=== PATIENT | male | born 1950 | race Caucasian/White ===

== ENCOUNTER → 2018-04-27 03:16 | Outpatient (CLI) | payer OTHER, SELFPAY ==
[2018-04-27 12:33] LABS: Abs Immature Grans 0.01 k/cumm (0.0-0.09); Absolute Basophil Count 0.05 k/cumm (0.0-0.2); Absolute Eosinophil Count 0.24 k/cumm (0.0-0.7); Absolute Lymphocyte Count 1.98 k/cumm (1.2-3.4); Absolute Monocyte Count 0.74 k/cumm (0.11-0.7); Absolute Neutrophil Count 5.71 k/cumm (1.2-6.7); Basophils % 0.6; Eosinophils % 2.7; HCT 42.4 % (40.0-50.0); HGB 14.1 g/dL (13.5-17.5); Immature Grans % 0.1; Lymphocytes % 22.7; Mean Corp. HGB Concentration 33.3 g/dL (32.0-36.0); Mean Corpuscular Hemoglobin 33.2 pg (27.0-33.0); Mean Corpuscular Volume 99.8 fL (80-95); Mean Platelet Volume 10.6 fL (8.0-11.0); Monocytes % 8.5; Neutrophils % 65.4; Platelet Count 303 x1000/uL (130-400); RBC 4.25 m/cumm (4.50-6.00); RBC Distribution Width 13.6 % (11.8-14.1); White Blood Cell Count 8.73 k/cumm (4.4-10.8)
== END ==
PROVIDERS: PCP Internal Medicine; Visit Provider Internal Medicine
DX: D64.9 Anemia, unspecified (principal)
CPT/HCPCS: 36415; 85025

== ENCOUNTER 2018-06-18 07:01 | Day surgery (SDC) | payer OTHER, SELFPAY ==
--- NOTE | 2018-06-18 06:16 | W.COLOREPORT ---
Colonoscopy Report Date of procedure: 06/18/18 Pre-op diagnosis general: Colon Cancer screening Post-op diagnosis procedure note: same (and Masterson-diverticulosis, external hemorrhoid) Procedure: Colonoscopy Surgeon: Sapphire Bran Anesthesia proc note operative: MAC (Audrey Mercado CRNA) Estimated blood loss (mL): 0 Pathology: none sent Complications: None Disposition: same day Indications: Mr. Albert was seen in the office for a colonoscopy. Risks, benefits and complications were reviewed and he wished to proceed. No guarantees were given or implied. Prep: Miralax/Dulcolax Procedure Start Time: 08:39 Procedure End Time: 09:10 Retraction Time: 21 minutes Findings: Masterson-diverticulosis and external hemorrhoid Procedure Description: After informed consent was obtained the patient was taken to the procedure room and placed in a left decubitous position. Monitors were applied and a time out was done. The patients name, date of , procedure, allergies to medications and metal in their body was reviewed. The patient was then sedated. Once sedated and comfortable a rectal exam was done. External exam revealed an external hemorrhoid. Internal exam revealed a normal sphincter tone and no palpable masses. The prostate was normal. The scope was then introduced and retroflexed. No internal hemorrhoids were identified. The scope was then advanced to the cecum without difficulty. The TI and appendiceal orifice were identified. The prep was adequate. The scope was then slowly retracted over 21 minutes back into the rectum. The scope was removed and the patient was woken up and taken back to Same day surgery in stable condition. The patient tolerated the procedure well and there were no immediate complications. Follow up: The patient should follow up in 10 years unless they develop changes in bowel habits or other new gastrointestinal complaints.
--- NOTE | 2018-06-18 06:19 | PDOC.DSDIS_ITS ---
Discharge Plan Disposition Patient Disposition: HOME Condition: Good Discharge Details Reason For Visit: colon cancer screening Attending Provider: Sapphire Bran Primary Care Provider: Jessie Looney Home Meds and New Rx's Prescriptions: Continue CENTRUM TABLET 1 EACH tablet 1 ea PO DAILY RF: 0 tadalafil [Cialis] 2.5 MG tablet 2.5 mg PO DAILY Qty: 30 RF: 5 zolpidem 12.5 MG tablet,ext release multiphase 12.5 mg PO HS PRNQty: 30 RF: 5 Discontinued polyethylene glycol 3350 17 gram powder in packet 255 g PO DAILY Qty: 15 RF: 0 bisacodyl [Dulcolax (bisacodyl)] 5 mg tablet,delayed release (DR/EC) 5 mg PO ONCE Qty: 4 RF: 0 Discharge Instructions Instructions: Colonoscopy (DC), Diverticulosis (DC) Additional Instructions: Findings: Diverticulosis External hemorrhoids Follow up: 10 years New Medications: none Please call if you develop: fevers >101.5 Nausea or Vomiting Abdominal pain that is not transient 1. Because there will be medication in your system for the next 24 hours, you may feel a little sleepy. Your coordination will be affected. Therefore: a. Do not drive or operate dangerous equipment for 24 hours. b. Do not drink alcohol beverages for 24 hours (not even beer). c. Plan to go home and rest for the day. 2. Generally there are no restrictions on your activity after a day or so has gone by, but you may feel a bit fatigued for a few days. 3 After you arrive home you may have a light meal and return to a normal diet as you can tolerate it without feeling sick to your stomach. 4. After surgery, you may feel pain or discomfort. This should be only transient , but if it persists please contact your doctor. 5. If there are any questions regarding the findings of your procedure, please feel free to contact your doctor. 6. If you are unable to contact your doctor with a problem, contact the hospital at [phone]. 7. Continue all your regular medications unless directed otherwise. I understand the above instructions and have no questions. Signature of Patient or Responsible Adult Escort Date/Time Name of Responsible Adult Escort Signature of Nurse Date/Time Activity:: Activity as Tolerated Diet:: High Fiber diet Discharge Orders Discharge Orders: Discharge Order (Routine); Ordered 06/18/18 Ordered By: Sapphire Bran
[2018-06-18 07:16] VITALS: BP 142/84; PULSE 68; RESP 16; TEMP 36.3; O2SAT 99
[2018-06-18] MEDS: Lactated Ringers 1,000 ML 80 ML IV (07:45)
--- NOTE | 2018-06-18 08:28 | HPE_ITS ---
Assessment and Plan (1) Encounter for colorectal cancer screening: Current visit: Yes Status: Acute P\\ Colonoscopy under sedation The Risks, benefits and complications have been reviewed. Complications include but are not limited to bleeding, pain, perforation, missed small lesion/polyp, sore throat, aspiration and adverse reaction to the medications. Questions were entertained and answered to their satisfaction and they wished to proceed. No guarantees were given or implied. Patient is here today for Colonoscopy screening pre-op. His last Colonoscopy was in 2006, which was unremarkable. He has no family history of colon cancer. He has not had any bowel habit changes. Denies hematochezia, melena, abdominal pain, unintentional weight loss. Denies constitutional symptoms. Denies chest pain, palpitations, dyspnea or dyspnea with exertion. There have been no changes in his health since he was seen in the office. Review of Systems Cardiovascular Denies chest pain, Denies rapid heart rate and Denies irregular heart rhythm Respiratory Reports system reviewed and no additional complaints, except as docu [facility] Family History Mother Neoplasm Father Essential hypertension Neoplasm Sister Cerebrovascular accident Grandfather Neoplasm Grandfather Diabetes Grandmother No problems noted. Grandmother Neoplasm Sister No problems noted. Son No problems noted. Daughter No problems noted. Medical History Erectile dysfunction (Acute) Low back pain (Acute) Sensorineural hearing loss, bilateral (Acute) Social History Smoking/Tobacco Use Status: Never Surgical History Repair of umbilical hernia (~04/2011) Vasectomy Meds Home Medications Medication Instructions Recorded Confirmed Type Centrum Tablet 1 ea PO DAILY 07/11/13 06/18/18 History tadalafil [Cialis] 2.5 mg PO DAILY #30 tab-cap 11/22/17 06/18/18 Rx zolpidem 12.5 mg PO HS PRN #30 tab-cap 04/19/18 06/18/18 History bisacodyl 5 mg tablet,delayed 5 mg PO ONCE #4 tab 05/18/18 06/18/18 Rx release polyethylene glycol 3350 17 gram 255 g PO DAILY #15 each 05/18/18 06/18/18 Rx oral powder packet Allergies Allergy/AdvReac Type Severity Reaction Status Date / Time sulfamethoxazole AdvReac Mild GI Upset Unverified 08/02/17 09:39 Exam Resp Auscultation: clear to auscultation bilaterally Cardio Rate: regular rate Rhythm: regular rhythm Results Last Vital Signs Temp 97.3 F L 06/18/18 07:16 Pulse 68 06/18/18 07:16 Resp 16 06/18/18 07:16 BP 142/84 H 06/18/18 07:16 Pulse Ox 99 06/18/18 07:16
[2018-06-18 09:53] VITALS: BP 133/84; PULSE 59; RESP 18; TEMP 36.4; O2SAT 98
== END 2018-06-18 10:08 | disposition home or self-care (01) ==
LOC: SUR 07:04
PROVIDERS: PCP Internal Medicine; Visit Provider Surgery
PROC: 0DJD8ZZ Inspection of Lower Intestinal Tract, Via Natural or Artificial Opening Endoscopic (ICD-10-PCS; CPT 45378; principal; 2018-06-18 08:15)
DX: Z12.11 Encounter for screening for malignant neoplasm of colon (principal)
CPT/HCPCS: 45378; NC

== ENCOUNTER 2018-08-13 10:18 | Outpatient (CLI) | payer OTHER, SELFPAY ==
[2018-08-13 13:35] LABS: Cholesterol 218 mg/dL (50-200); HDL Cholesterol 111 mg/dL (40-60); LDL CHOLESTEROL 86 mg/dL (<100)
[2018-08-13 13:37] LABS: Triglyceride < 25 mg/dL (30-150)
== END 2018-08-13 10:38 ==
PROVIDERS: PCP Internal Medicine; Visit Provider Internal Medicine
DX: E78.5 Hyperlipidemia, unspecified (principal)
CPT/HCPCS: 36415; 80061; 83721

== ENCOUNTER 2019-08-23 01:24 | Outpatient (CLI) | payer OTHER, SELFPAY ==
[2019-08-23 13:05] LABS: ALT 26 U/L (16-63); AST 16 U/L (15-37); Alkaline Phosphatase 57 U/L (46-116); Anion Gap 5.7 mmol/L (3-11); BUN 15 mg/dL (7-18); Bilirubin, Total 0.8 mg/dL (0.2-1.0); CO2 32.3 mmol/L (21.0-32.0); Calcium 9.4 mg/dL (8.5-10.1); Calculated LDL 104 mg/dL; Chloride 102 mmol/L (98-107); Cholesterol 215 mg/dL (<200); Glucose 102 mg/dL (74-106); HDL Cholesterol 102 mg/dL (40-60); Potassium 4.3 mmol/L (3.5-5.1); Sodium 140 mmol/L (136-145); Total Protein 7.3 g/dL (6.4-8.2); Triglyceride 48 mg/dL (<150)
[2019-08-26 10:51] LABS: PSA, Screening 1.2 ng/mL (0.0-4.5)
== END 2019-08-23 01:44 ==
PROVIDERS: PCP Internal Medicine; Visit Provider Internal Medicine
DX: Z00.00 Encounter for general adult medical examination without abnormal findings (principal); R35.1 Nocturia; Z13.220 Encounter for screening for lipoid disorders; Z12.5 Encounter for screening for malignant neoplasm of prostate
CPT/HCPCS: 36415; 80053; 80061; 84153

== ENCOUNTER 2020-08-25 02:47 | Outpatient (RCR) | payer OTHER, SELFPAY ==
--- NOTE | 2020-08-25 13:00 | HOLTER_ITS ---
APPROVED REPORT Exam Type: HOLTER MONITOR APPLICATION Reason for Test: bradycardia conduction d/o Patient Location: O Conclusion This is a 48-hour Holter monitor. Rhythm throughout was sinus. Average heart rate was 78. Minimum was 58 and maximum 121 There were rare atrial and ventricular ectopic beats No atrial fibrillation, no pauses greater than 3 seconds, no high-grade AV block No patient symptoms were reported
== END 2020-09-03 23:59 | disposition home or self-care (01) ==
LOC: RT 02:47
PROVIDERS: PCP Nurse Practitioner; Visit Provider Nurse Practitioner
DX: R00.1 Bradycardia, unspecified (principal)
CPT/HCPCS: 93225; 93226

== ENCOUNTER 2021-12-06 04:09 | Outpatient (CLI) | payer OTHER, SELFPAY ==
[2021-12-06 10:30] LABS: Source Nasal/Nares
[2021-12-06 14:44] LABS: COVID-19 PCR Negative (Negative)
== END 2021-12-06 04:10 | disposition home or self-care (01) ==
LOC: LBO 04:09
PROVIDERS: PCP Nurse Practitioner; Visit Provider Surgery
DX: Z20.822 Contact with and (suspected) exposure to COVID-19 (principal); Z01.818 Encounter for other preprocedural examination
CPT/HCPCS: 87635

== ENCOUNTER 2021-12-08 07:50 | Day surgery (SDC) | payer OTHER, SELFPAY ==
[2021-12-08] VITALS (7 sets, daily range): BP systolic 93–137; BP diastolic 55–87; PULSE 53–78; RESP 16–17; TEMP 36.4–36.6; O2SAT 95–97; BMI 27.9
--- NOTE | 2021-12-08 06:31 | W.PREOPHP ---
Assessment and Plan Assessment and plan (1) Left inguinal hernia: Status: Acute Assessment and plan: Fermin is here today with Faith regarding a left inguinal hernia.? On exam it is a small hernia that is easily reduced.? We discussed reasons to have this repaired.? If he has increase in pain, the hernia causes him not to be able to do the things he wants to do on a daily basis or if he starts to have difficulty in reducing it then we should repair it.? He needs to learn to lift using proper mechanics.? She should not be lifting heavy things by himself.? I discussed the surgery and postoperative restrictions.? I gave them a pamphlet to read regarding hernia repairs. Risks, benefits and complications were reviewed. Complications include but are not limited to bleeding, infection, recurrence, chronic pain from nerve impingement, adverse reaction to medications. Questions were entertained and answered to his satisfaction and he wished to proceed. No guarantees were given or implied. History of Present Illness Narrative: Fermin is here today because about 3 to 4 weeks ago he noticed a lump in his left inguinal area.? He was able to push it back and when he laid down.? He is here today to discuss whether or not he has to have this repaired.? He has not had any dysuria or hematuria.? He has not had any issues with bowel movements.? He has minimal discomfort.? He would rated a 1 out of 10 when he does have discomfort.? He did have an umbilical hernia repair in the past and did well with that.? He did not have any issues with the mesh. left inguinal 1 No 3-4 weeks reduced hernia denies chills, constipation, cramping, diarrhea, fever(s), nausea, vomiting or other Anesthesia: general Previous surgical intolerances: No Previous surgical complications: No Pulmonary risk factors: age > 60 Date of surgery: 12/08/21 Planned procedure: Yes Sleep apnea risks: No Can climb one flight of stairs (12-13 steps) in less than 30 seconds without stopping and without symptoms: Yes The surgery proposed for this patient is: low risk Active cardiac conditions: none Active risk factors: none ASA (acetylsalicylic acid): not used Beta blockers: not used Review of Systems All systems reviewed & are unremarkable except as noted in HPI and below PFSH All Active Problems Left inguinal hernia (Acute) Nocturia (Acute) Insomnia (Acute) Bradycardia (Acute) Sensorineural hearing loss, bilateral (Acute 01/07/16) Erectile dysfunction (Acute 07/14/14) Medical History Low back pain Seeing chiropractor with good results. Also increased exercise. Scoliosis Surgical History Repair of umbilical hernia (~04/2011) Vasectomy Family History Mother , age 71 Breast cancer Cervical cancer Father , age 85 Essential hypertension Cancer of kidney Sister , age 56 Stroke Maternal Grandfather Prostate cancer Paternal Grandfather Diabetes Maternal Grandmother No problems noted. Paternal Grandmother Cancer Sister No problems noted. Son No problems noted. Daughter No problems noted. Social History Smoking/Tobacco Use Status: Never Second Hand Exposure: Yes Smoking risk assessment performed?: Yes Alcohol Intake: current Alcohol Intake frequency: a few times a week Alcohol type: beer, wine and hard liquor Drug use: Never Substance use type: does not use Caregiver/Support person: No Household members: spouse Housing: house Communication Needs: Hard of Hearing Pets and animals: No Sexually active: Yes Do you think of yourself as: straight/heterosexual Current gender identity: male What is your relationship status?: How often do you talk on the phone with friends or family?: three or more times per week How often do you get together with friends or relatives?: once per week How often do you attend orthodox or bahai services?: 1-3 times per year Do you belong to any clubs or organized social groups?: yes Panel score (0-1 are the most socially isolated patients): 3 What type of physical activity do you participate in: walking and weight lifting Duration: 30-45 minutes/day Frequency: 3-4 times per week Nicole/Jewish: Denominational Special nicole needs: No Seatbelt use: always Drive intox or ride w/intox wrecking car driver: No Do you feel safe at home: Yes Do you feel safe in your relationship?: Yes Victim of physical abuse: No Victim of emotional abuse: No Victim of sexual abuse: No Would you like helpful sources: No Meds Allergies and Home Medications Allergies Allergy/AdvReac Type Severity Reaction Status Date / Time sulfamethoxazole AdvReac Mild GI Upset Verified 12/08/21 07:58 Home Medications Medication Instructions Recorded Confirmed Type Centrum Tablet 1 ea PO DAILY 07/11/13 12/08/21 History tadalafil 5 mg tablet 5 mg PO DAILY #90 tab 11/15/21 12/08/21 Rx zolpidem 12.5 mg tablet,extended 12.5 mg PO HS PRN #60 tab-cap 11/16/21 12/08/21 Rx release,multiphase Exam Const General: cooperative, comfortable and no acute distress [facility] Head: normocephalic and atraumatic Resp Effort & Inspection: normal respiratory effort Auscultation: clear to auscultation bilaterally Cardio Rate: regular rate Rhythm: regular rhythm GI Inspection: normal to inspection Palpation: soft, no hepatosplenomegaly, hernia (left inguinal hernia) and nontender
--- NOTE | 2021-12-08 06:36 | W.PM.OP ---
Date of service: 12/08/21 Time of Service: 10:11 Operative Note Operative Note DATE OF PROCEDURE: 12/08/21 PRE-OP DIAGNOSIS: left inguinal hernia POST-OP DIAGNOSIS: other (left direct and indirect inguinal hernia) PROCEDURE: Left inguinal hernia repair with mesh SURGEON: Sapphire Bran DISPENSING OPERATOR: Yoselyn Contreras Refer to Anesthesia Record ESTIMATED BLOOD LOSS: 15 PATHOLOGY: none sent COMPLICATIONS: None Patient was transported to: PACU Patient's condition: stable Implants: PerFix Light Plug: REF- [id number] LOT- [id number] 2025-10-01 Indications: Fermin is here today with Faith regarding a left inguinal hernia.? On exam it is a small hernia that is easily reduced.? We discussed reasons to have this repaired.? If he has increase in pain, the hernia causes him not to be able to do the things he wants to do on a daily basis or if he starts to have difficulty in reducing it then we should repair it.? He needs to learn to lift using proper mechanics.? She should not be lifting heavy things by himself.? I discussed the surgery and postoperative restrictions.? I gave them a pamphlet to read regarding hernia repairs. Risks, benefits and complications were reviewed. Complications include but are not limited to bleeding, infection, recurrence, chronic pain from nerve impingement, adverse reaction to medications. Questions were entertained and answered to his satisfaction and he wished to proceed. No guarantees were given or implied. Findings: Large direct hernia and indirect hernia Cord lipoma Procedure Description: After informed concent was obtained the patient was taken to the operating room and placed in a supine position. Monitors and SCDs were applied and a timeout was done. The patient's name, date of , procedure type, procedure site, allergies to medications, preoperative antibiotic, and DVT prophylaxis were all reviewed. Fire risk was assessed. Next anesthesia did a tap block on the left side under ultrasound guidance. Please see their separate dictation. Once anesthesia was done the abdomen was prepped and draped in a sterile surgical fashion. 0.25% Bupivocaine was injected into the dermis in the left lower quadrant. An incision was made with a 10 blade in the left lower quadrant. Dissection was done with cautery through the subcutaneous tissues and Sandi's fascia down to the external oblique fascia. The external ring was identified and the external oblique fascia was opened sharply through the external ring. The cut fascia was grasped with hemostats the cord structures were identified and a Ramesh drain was placed around them. The ilioinguinal nerve was identified and cut. The cremasteric muscle was dissected away from the cord structures using both cautery and blunt dissection. A hernia sac was identified and removed from the cord structures using blunt dissection. The hernia sac was suture ligated and amputated. The remnant was pushed back into the peritoneum. An XL plug was placed into the indirect defect and secured with 2-0 proline. A flat piece of mesh was then attached to the lacunar ligament using a 2-0 Prolene double armed suture. The mesh was secured laterally and medially with a 2-0 Prolene, with a running suture. The tails of the mesh were wrapped around the cord structures effectively cinching down the internal ring. Once the mesh was secured the tissues were irrigated with some normal saline. No bleeding was identified. The external oblique fascia was reapproximated using 2-0 Vicryl running suture. The Sandi's fascia was reapproximated using interrupted 3-0 Vicryl. The dermis was reapproximated with a running 4-0 Vicryl. The skin was cleaned and dried and skin affix was applied. The patient was woken up and taken back to recovery in stable condition. There were no immediate complications. Sponge, instrument and needle counts were correct at the end of the case x2.
--- NOTE | 2021-12-08 06:37 | W.PM.DSUDISC ---
Discharge Plan Disposition Patient Disposition: HOME Condition: Stable Discharge Details Reason For Visit: left inguinal hernia repair Attending Provider: Sapphire Bran Primary Care Provider: Yanique Duque Home Meds and New Rx's Prescriptions: Continued CENTRUM TABLET 1 EACH tablet 1 ea PO DAILY 0RF tadalafil 5 mg tablet 5 mg PO DAILY Qty: 90 4RF zolpidem 12.5 mg tablet,ext release multiphase 12.5 mg PO HS PRN (Reason: insomnia) Qty: 60 0RF Discharge Instructions Additional Instructions: Activity at Home after surgery: 1. Make sure you walk outside at least 4 times per day 2. You should be able to climb a flight of stairs 3. No driving while in pain or taking pain medications 4. No strenuous activity or heavy lifting for 4 weeks (open surgery) Diet, Nutrition, & wound healin. Avoid alcohol until after you are recovered from your surgery 2. Make sure to eat plenty of lean protein (meat, fish, eggs, cottage cheese, beans) 3. Eat a variety of fruits and vegetables. Eat plenty of high fiber foods to avoid constipation. 4. Drink plenty of liquids to stay hydrated and avoid constipation Pain Medications: 1. Tylenol 650mg every 6 hours as needed and Ibuprofen 600 mg every 6 hours as needed. You may alternate between the 2 medications every 3 hours 2. If a narcotic has been prescribed take as directed only for breakthrough pain For Constipation: 1. Take Milk of Magnesia or MiraLax as needed for constipation Other: 1. You may shower daily. Do not scrub the incisions 2. Do not soak the incisions for 1 week 3. You may alternate ice and heat as needed for pain and swelling Wound Care: 1. Keep the incisions clean and dry Other Services that may have been ordered: 0 Home Health- to help with dressing changes 0 Outpatient physical therapy Please call our office if you develop: 1. Fevers >101.5 2. Nausea or Vomiting 3. Worsening pain 4. Redness and thick discharge from the wounds If after hours please call the Hospital at and ask to speak to the on-call surgeon Referrals: Sapphire Bran MD [ [facility] STAFF PHYSICIAN] - 12/28/21 10:00 am Activity:: as above Remove Dressings/Wound Care:: Do Not Remove Shower/Bathe:: 24 hours Diet:: As Tolerated Discharge Orders Discharge Orders: Discharge Order (Routine); Ordered 12/08/21 Ordered By: Sapphire Bran DS: Diagnosis Discharge Diagnosis (1) Left inguinal hernia: Status: Acute
--- NOTE | 2021-12-08 07:09 | ANES.PREOP_ITS ---
General Info Date of Service Date Performed: 12/08/21 Height: 5 ft 8 in Weight: 83.461 kg Body Mass Index (BMI): 27.9 Surgical Procedure: Operation Date: 12/08/21 09:10 Proposed Procedure Side Surgeon p Herniorrhaphy Inguinal Left Sapphire Bran MD Meds Allergies and Home Medications Allergies Allergy/AdvReac Type Severity Reaction Status Date / Time sulfamethoxazole AdvReac Mild GI Upset Verified 12/08/21 07:58 Home Medication Medication Instructions Recorded Centrum Tablet 1 ea PO DAILY 07/11/13 tadalafil 5 mg tablet 5 mg PO DAILY #90 tab 11/15/21 zolpidem 12.5 mg tablet,extended 12.5 mg PO HS PRN #60 tab-cap 11/16/21 release,multiphase Current Visit Medications: Current Medications Generic Name Dose Route Start Last Admin Trade Name Freq PRN Reason Stop Dose Admin Acetaminophen 1,000 mg 12/08/21 06:00 Acetaminophen 500 Mg Tab PO 01/06/22 23:59 PREOP NATE Celecoxib 200 mg 12/08/21 06:00 Celecoxib 200 Mg Cap PO 01/06/22 23:59 PREOP PENDING SALE TO [facility] Gabapentin 600 mg 12/08/21 06:00 Gabapentin 300 Mg Cap PO 01/06/22 23:59 PREOP PENDING SALE TO [facility] Ringer's Solution 1,000 mls @ 80 mls/hr 12/08/21 06:00 IV 01/06/22 23:59 INFUSION NATE Cefazolin Sodium/Dextrose 2 gm in 50 mls @ 100 mls/hr 12/08/21 06:00 Ancef Duplex IVPB 01/06/22 23:59 PREOP PENDING SALE TO [facility] Ondansetron HCl 4 mg/ Sodium 52 mls @ 200 mls/hr 12/08/21 06:38 Chloride IVPB Q6H PRN PRN IV Miscellaneous Supplies 1 each 12/08/21 06:00 Iv Access IV 01/06/22 23:59 DIRECTED NATE Ibuprofen 600 mg 12/08/21 06:38 Ibuprofen 600 Mg Tab PO Q6H PRN PRN Pain Oxycodone HCl 5 mg 12/08/21 06:38 Oxycodone 5 Mg Tab PO Q3H PRN PRN Pain Sodium Chloride 0 ml 12/08/21 06:00 Normal Saline Flush 10 Ml Syr IV 05/05/22 23:59 PRN PRN Sodium Chloride 0 ml 12/08/21 06:00 Normal Saline 10 Ml Vial IJ 01/06/22 23:59 DIRECTED PRN Sterile Water 0 ml 12/08/21 06:00 Water,Injection,Sterile 10 Ml Vial IJ 01/06/22 23:59 DIRECTED PRN PFSH Active Problems Active Problems: Problem Status Onset Code Left inguinal hernia K40.90 Nocturia R35.1 Insomnia G47.00 Bradycardia R00.1 Sensorineural hearing loss, bilateral 01/07/16 H90.3 Erectile dysfunction 07/14/14 N52.9 Medical History Medical History Low back pain Seeing chiropractor with good results. Also increased exercise. Scoliosis Surgical History Surgical History Repair of umbilical hernia (~04/2011) Vasectomy Tobacco Smoking/Tobacco Use Status: Never Passive smoking exposure: Yes Second hand exposure: Yes Alcohol Alcohol Intake: current Alcohol intake frequency: a few times a week Alcohol type: beer, wine and hard liquor Substance Use Substance use: Never Substance use type: does not use Vital Signs and Lab Results Lab Results Blood Type / Crossmatch: No Data to Display Complete Blood Count: No Data to Display Complete Metabolic Panel: No Data to Display Liver Function Panel: No Data to Display Coagulation Panel: No Data to Display Cardiac Panel: No Data to Display Arterial Blood Gas: No Data to Display Venous Blood Gas: No Data to Display Pancreas Panel: No Data to Display Thyroid Panel: No Data to Display Infectious Disease: Coronavirus (COVID-19)(PCR) Negative (Negative) 12/06/21 08:45 12/06/21 Coronavirus 2019 Source Nasal/Nares 12/06/21 08:45 12/06/21 Blood Cultures: No Data to Display Toxicology Panel: No Data to Display Imaging and Studies Imaging and Studies Study information below may be from another EMR and interpreted by another provider. Please see original notes in EMR for more complete details. EKG Summary: Conclusion Sinus rhythm...normal P axis, V-rate 60- 99 Nonspecific intraventricular conduction delay...QRSd >115mS, not LBBB/RBBB Anesthesia Assessment and Plan Anesthesia History Personal History: No History of Anesthesia Complications Family History: No Family History of Anesthesia Complications Exercise Tolerance Exercise Tolerance: Metabolic Equivalents>4 Pertinent Negatives Pertinent Negatives: No Symptoms of GERD, No Major Cardiovascular Symptoms or Complaints, No Major Pulmonary Symptoms or Complaints and No History of CVA/TIA Cardiac & Pulmonary Exam Cardiac Exam: Normal S1/S2 Heart Sounds Pulmonary Exam: Clear Bilateral Breath Sounds Implantable Cardiac Device Does patient have a Pacemaker or an ICD?: No Airway Exam Known Difficult Airway: No Mallampati Class: 2 Mouth Opening: Normal (> 3cm) Thyromental Distance: Greater than 3 cm Neck Range of Motion: Full ROM Neck Circumference: Normal Teeth Condition: Normal Dentition ASA Classification ASA Score: ASA 2 Emergency Case?: No NPO Status NPO Status: NPO Clears >2 hours, Solids >8 hours Anesthesia Plan Resuscitation Status: Full Code Anesthesia Technique: General Anesthesia Airway Planned: LMA Pain Management: Surgeon and patient request nerve block Monitors Used: Standard Monitors
[2021-12-08] MEDS: Celecoxib 200 MG CAP PO (08:35)
[2021-12-08] MEDS: Acetaminophen 500 MG TAB 1000 MG PO (08:35)
[2021-12-08] MEDS: Gabapentin 300 MG CAP 600 MG PO (08:35)
[2021-12-08] MEDS: Lactated Ringers 1,000 ML 80 ML IV (08:36)
[2021-12-08] MEDS: ceFAZolin 2 GM/50 ML BAG IVPB (09:11)
--- NOTE | 2021-12-08 09:26 | W.ANESNERVE ---
Nerve Block Single Injection Procedure Date and Time Date Performed: 12/08/21 Procedure Start: 08:09 Location Where Procedure Performed Procedure Location: Operating Room Procedure Stop: 08:19 Reason Performed: Postoperative Analgesia Requesting Provider: Sapphire Bran Timeout Performed Timeout Performed: Yes Monitoring Used ECG, Blood Pressure, SpO2 and ETCO2 Sterility Sterility: Hand Hygiene, Surgical Cap, Surgical Mask, Sterile Gloves, Eye Protection and Chlorhexidine Sedation Given During Procedure Sedation Given (Indicate Dose Given): No Sedation given Patient Mental Status Patient Mental Status: Sedated or Ventilated without meaningful communication Nerve Block 1st Nerve Block: Laterality: Left Block Type: TAP Unilateral Needle / Catheter Used: 100mm SonoPlex II Local Anesthetic Bolus (Indicate Dose Given): Injected in 3-5ml increments after negative blood aspiration and Bupivacaine 0.25% Dose:: 20 ml Additives (Indicate Dose Given): Precedex Dose:: 80 mcg Ultrasound: Sterile probe cover and gel used Ultrasound Image Saved?: Yes Nerve Stimulator: Not Used Paresthesia: None Procedure Tolerated: No Complications and Patient tolerated well Procedure Outcome: Successful Performed By: Jessica Payne Supervised By: Guillermo Hernandez
[2021-12-08] MEDS: Bupivacaine 0.25% Pres-Free 30 ML VIAL (10:03)
--- NOTE | 2021-12-08 11:32 | W.ANESPOSTOP ---
Postoperative Evaluation Date, Time and Location Date Performed: 12/08/21 Time Performed: 11:32 Patient Location: Day Surgery Unit Vital Signs Most Recent Imported Vital Signs: Most Recent Vital Signs Temp Pulse Resp BP Pulse Ox 36.4 C L 57 L 16 100/73 96 12/08/21 11:21 12/08/21 11:21 12/08/21 11:21 12/08/21 11:21 12/08/21 11:21 Pain Score Most Recent Pain Score: Most Recent Pain Score Pain Level 2 12/08/21 11:21 Assessment Mental Status: Awake (Alert & Oriented to Patient Baseline) Airway and Respiratory Function: Patent airway with normal (patient baseline) respiratory exam Cardiovascular Function: Hemodynamically Stable Hydration Status: Adequately Hydrated Nausea & Vomiting: No Nausea or Vomiting Pain: Pt. Denies Any Pain Peripheral Nerve Block: Regional nerve block not resolved at time of post operative discharge
== END 2021-12-08 11:53 | disposition home or self-care (01) ==
LOC: SUR 07:51
PROVIDERS: PCP Nurse Practitioner; Visit Provider Surgery
PROC: (CPT 49505; principal; 2021-12-08 09:00)
DX: K40.90 Unilateral inguinal hernia, without obstruction or gangrene, not specified as recurrent (principal); R00.1 Bradycardia, unspecified; G47.00 Insomnia, unspecified
CPT/HCPCS: 49505; 76942; C1781; J0690; J1100; J1885; J2405; J2704

== ENCOUNTER → 2023-05-26 14:16 | Outpatient (CLI) | payer OTHER, SELFPAY ==
--- NOTE | 2023-05-26 12:30 | DI.RAD_ITS ---
Exam(s) XR CHEST 2V PA LATERAL EXAM: XR CHEST 2V PA LATERAL CLINICAL HISTORY: worsening cough R05.9 TECHNIQUE: 2D digital imaging was performed. COMPARISON: No exams were available for comparison FINDINGS: HEART: Normal size. Aorta: Not dilated. PULMONARY VASCULATURE: Normal. LUNGS: Clear. PLEURAL SPACE: No pleural effusion or pneumothorax. BONE:Unremarkable for age. IMPRESSION: No acute abnormality. DATA REPOSITORY: RADIATION DOSE DELIVERED:
== END ==
PROVIDERS: PCP Nurse Practitioner Family; Visit Provider Nurse Practitioner Family
DX: R05.9 Cough, unspecified (principal)
CPT/HCPCS: 71046

== ENCOUNTER 2023-06-19 04:54 | Outpatient (CLI) | payer OTHER, SELFPAY ==
[2023-06-19] MEDS: Levalbuterol HFA 15 GM INH 4 PUFF IH (11:03)
[2023-06-19] MEDS: Inhaler, Assist Device 1 EACH MC (11:03)
--- NOTE | 2023-06-19 15:59 | W.PFT ---
Date of service: 06/19/23 Time of Service: 09:57 Pulmonary Function Test Result Indications: Asthma Interpretation Spirometry: There is no airflow limitation. There is no significant bronchodilator response. Impression Normal spirometry Clinical Correlation therefore is recommended.
== END 2023-06-19 04:55 | disposition home or self-care (01) ==
LOC: RT 04:54
PROVIDERS: PCP Nurse Practitioner Family; Visit Provider Family Medicine
DX: J45.40 Moderate persistent asthma, uncomplicated (principal)
CPT/HCPCS: 94060

== ENCOUNTER 2023-06-21 08:24 | Outpatient (CLI) | payer OTHER, SELFPAY ==
[2023-06-23 18:19] LABS: Elm IgE <0.10 kU/L (<0.70); June Grass IgE 0.49 kU/L (<0.70); Lamb's Quarter IgE <0.10 kU/L (<0.70); Oak IgE <0.10 kU/L (<0.70); Short Ragweed IgE 0.19 kU/L (<0.70); Silver Birch IgE <0.10 kU/L (<0.70); Timothy Grass IgE 0.45 kU/L (<0.70)
== END 2023-06-21 08:25 | disposition home or self-care (01) ==
PROVIDERS: PCP Nurse Practitioner Family; Referring Provider Family Medicine; Visit Provider Family Medicine
DX: J45.40 Moderate persistent asthma, uncomplicated (principal); R06.2 Wheezing
CPT/HCPCS: 36415; 86003

== ENCOUNTER 2023-08-14 05:31 | Outpatient (CLI) | payer OTHER, SELFPAY ==
[2023-08-14] MEDS: Methacholine 100 MG VIAL IH (14:25)
[2023-08-14] MEDS: Inhaler, Assist Device 1 EACH MC (14:26)
[2023-08-14] MEDS: Albuterol HFA 18 GM 200 PUFF INH IH (14:26)
--- NOTE | 2023-08-14 14:50 | W.PFT ---
Date of service: 08/14/23 Time of Service: 12:53 Pulmonary Function Test Result Indications: Asthma Interpretation Spirometry: There is no airflow limitation. There is a 23% decrease in FEV1 with administration of 2.0 mg/mL methacholine. Lung Volumes: Normal lung volumes Diffusion Capacity: Normal diffusion Airway Pressure: Normal airways resistance Impression Normal pulmonary function with a positive methacholine challenge test. Clinical Correlation therefore is recommended.
== END 2023-08-14 05:32 | disposition home or self-care (01) ==
LOC: RT 05:31
PROVIDERS: PCP Nurse Practitioner Family; Visit Provider Physician Assistant Surgical
DX: J45.40 Moderate persistent asthma, uncomplicated (principal)
CPT/HCPCS: 94060; 94070; 94726; 94729; 94010; J7674

== ENCOUNTER 2023-09-15 11:25 | Day surgery (SDC) | payer OTHER, SELFPAY ==
--- NOTE | 2023-09-14 18:45 | PDOC.DSDIS_ITS ---
Date of service: 09/15/23 Time of Service: 14:40 Discharge Plan Disposition Patient Disposition: Home Condition: Good Discharge Details Reason For Visit: Right inguinal hernia repair Attending Provider: Cameron Pearson Primary Care Provider: Judy Stevens Home Meds and New Rx's Prescriptions: New tramadol 50 mg tablet 50 mg PO Q8H PRNQty: 12 0RF Rx Instructions: Take 1 tablet by mouth up to every 8 hours if needed for severe pain. Continued (DME) BreatheRite MDI Spacer Spacer See Rx Instructions .ROUTE .MEDSUPPLY Qty: 1 0RF Rx Instructions: As directed (DME) peak flow meter Device See Rx Instructions .Route Qty: 1 0RF Rx Instructions: As directed CENTRUM TABLET 1 EACH tablet 1 ea PO DAILY tadalafil 5 mg tablet 5 mg PO DAILY Qty: 90 4RF zolpidem 12.5 mg tablet,ext release multiphase 12.5 mg PO HS PRN (Reason: insomnia) Qty: 60 0RF budesonide-formoterol [Symbicort] 160-4.5 mcg/actuation HFA aerosol inhaler 2 inh INHALATION BID Discharge Instructions Instructions: Inguinal Hernia Repair (GEN) Additional Instructions: Fermin, we were able to repair your hernia today without much difficulty. Everything went according to plan, just as we talked about beforehand. Expect to have a little more pain in the days to follow, and perhaps some bruising over the incision. The bruising can even extend down into the scrotum, so please do not be alarmed if that happens. But do let me know if you notice any significant changes in the skin around the incision, particularly if it starts turning bright red or has any drainage from the incision site. You should be up and moving around a little bit each day just being a little careful with your lifting. Try to keep it less than 10 pounds. I provided a prescription for a medication called tramadol if Tylenol and ibuprofen are not enough to help with the pain. I suspect he will do just fine. if you have any questions at all, please do not hesitate to call, otherwise I will see you in the office for rout ine follow-up. 1. Resume all of your medications. 2. Use heating pads and Ice packs as needed for pain. 3. Okay to use tylenol and ibuprofen over the counter as needed. Use tramadol as needed for more severe pain. 4. Leave bandage in place for 24 hours, then remove. 5. Shower with warm soapy water. Pat dry. Use a bandaid if needed to protect your clothing. 6. No soaking or tub baths until I see you in the office. 7. No heavy lifting until I see you in the office. 8. Call the office (or go directly to the emergency room after hours) if you notice any of the following: Develop chills (warm to touch), or if you have a thermometer and your temperature is above 101 Difficulty breathing or difficultly swallowing Persistent vomiting Any bleeding ? exceeding one tablespoon 9. Call your physician if the site where your intravenous was started becomes red, swollen, painful, and warm to touch. Activity:: No heavy lifting Remove Dressings/Wound Care:: 24 hours Shower/Bathe:: 24 hours Diet:: As Tolerated Discharge Orders Discharge Orders: Discharge Order (Routine); Ordered 09/14/23 Ordered By: Cameron Pearson DS: Diagnosis Discharge Diagnosis (1) Right inguinal hernia: Status: Acute Asessment and Plan: Status post open right inguinal herniorrhaphy with mesh; outpatient postop follow-up
--- NOTE | 2023-09-14 18:47 | W.PM.OP ---
Date of service: 09/15/23 Time of Service: 14:43 Operative Note Operative Note DATE OF PROCEDURE: 09/15/23 PRE-OP DIAGNOSIS: Right inguinal hernia POST-OP DIAGNOSIS: same Direct and indirect components PROCEDURE: Open right inguinal hernia repair with mesh SURGEON: Cameron Pearson MARKETING CAMPAIGN ANALYST: Yoselyn Contreras ANESTHESIA TYPE: Local By Surgeon and General LMA/ETT Refer to Anesthesia Record ESTIMATED BLOOD LOSS: 25 PATHOLOGY: none sent COMPLICATIONS: None Patient was transported to: PACU Patient's condition: stable Implants: Bard PerFix light patch and plug Indications: Fermin is a 73 year old man with an enlarging and occasional painful right inguinal hernia. Findings: Right-sided direct and indirect inguinal hernias Procedure Description: I began by confirming the correct site with the patient. Next, after induction of general anesthesia, the right inguinal region was blocked using real-time ultrasound guidance by the anesthesia team.. Surgical site was then prepped and draped in the usual fashion. I began by making an oblique incision over the right inguinal region. I dissected down through the skin to the deep fascia. Next, I incised the fascia along the length of the inguinal canal to the external ring. The external oblique fascia was quite attenuated. I then carefully identified the ilioinguinal nerve and sharply divided. Once this was complete, I bluntly dissected the shelving edge of the inguinal ligament down towards the pubic tubercle. Here, I encircled all cord structures with a Ramesh drain. Next, I began dissecting the specific cord structures. Great care was taken to spare the vas deferens and the blood supply to the testicle. Next, I isolated the hernia sac from the other inguinal structures. I reduced it back to its normal anatomic position. During this dissection, it also became quite clear that the floor of the inguinal canal was incompetent. In addition to the indirect inguinal hernia, there was also a direct component. I used a Bard PerFix light mesh plug to obliterate the defect at the internal ring. I fixed in place with interrupted Prolene stitches. Next, I buttressed the posterior floor of the inguinal canal with a large mesh patch. I started by fixing it to the pubic tubercle. Next, I used Prolene sutures to affix it to the shelving edge of the inguinal ligament and the conjoined tendon. Laterally I tacked it to the internal oblique fascia and reconstructed an internal ring without any strain on the cord structures. Once this was complete, I irrigated the surgical field. It appeared hemostatic. I then closed the anterior portion of the fascia to reconstruct the front wall of the inguinal canal. I did this with interrupted Vicryl stitches. Once again, I irrigated the surgical field and inspected for hemostasis. Finally, I approximated the superficial fascia and the deep layers of the skin with absorbable suture. Skin was closed with running subcuticular stitches. Bandages were applied, the patient was awakened and transferred to the recovery unit.
[2023-09-15] VITALS (9 sets, daily range): BP systolic 102–145; BP diastolic 57–91; PULSE 62–72; RESP 12–22; TEMP 36.7–37.1; O2SAT 94–98; BMI 26.6
[2023-09-15] MEDS: Gabapentin 300 MG CAP 600 MG PO (12:07)
[2023-09-15] MEDS: Celecoxib 200 MG CAP PO (12:08)
[2023-09-15] MEDS: Acetaminophen 500 MG TAB 1000 MG PO (12:08)
[2023-09-15] MEDS: Lactated Ringers 1,000 ML 80 ML IV (12:10)
--- NOTE | 2023-09-15 12:22 | W.ANESPRE ---
General Info Date of Service Date Performed: 09/15/23 Height: 5 ft 8 in Weight: 79.5 kg Body Mass Index (BMI): 26.6 Surgical Procedure: Operation Date: 09/15/23 13:40 Proposed Procedure Side Surgeon p Herniorrhaphy Inguinal w/Mesh Right Cameron Pearson MD Meds Allergies and Home Medications Allergies Allergy/AdvReac Type Severity Reaction Status Date / Time sulfamethoxazole AdvReac Mild GI Upset Verified 09/15/23 11:39 Home Medication Medication Instructions Recorded Centrum Tablet 1 ea PO DAILY 07/11/13 tadalafil 5 mg tablet 5 mg PO DAILY #90 tabs 04/04/23 inhalational spacing device #1 ea 05/01/23 (BreatheRite MDI Spacer) peak flow meter #1 ea 05/31/23 zolpidem 12.5 mg tablet,extended 12.5 mg PO HS PRN insomnia #60 07/03/23 release,multiphase tab-caps budesonide-formoterol HFA 160 2 inh inhalation BID 08/01/23 mcg-4.5 mcg/actuation aerosol inhaler (Symbicort) Current Visit Medications: Current Medications Generic Name Dose Route Start Last Admin Trade Name Freq PRN Reason Stop Dose Admin Acetaminophen 1,000 mg 09/15/23 06:00 09/15/23 12:08 Acetaminophen 500 Mg Tab PO 09/15/23 23:59 1,000 mg PREOP NATE Administration Celecoxib 200 mg 09/15/23 06:00 09/15/23 12:08 Celecoxib 200 Mg Cap PO 09/15/23 23:59 200 mg PREOP NATE Administration Gabapentin 600 mg 09/15/23 06:00 09/15/23 12:07 Gabapentin 300 Mg Cap PO 09/15/23 23:59 600 mg PREOP NATE Administration Ringer's Solution 1,000 mls @ 80 mls/hr 09/15/23 06:00 09/15/23 12:10 IV 09/15/23 23:59 80 mls/hr INFUSION NATE Administration Cefazolin Sodium/Dextrose 2 gm in 50 mls @ 100 mls/hr 09/15/23 06:00 Ancef Duplex IVPB 09/15/23 23:59 PREOP NATE IV Miscellaneous Supplies 1 each 09/15/23 06:00 Iv Access IV 09/15/23 23:59 DIRECTED NATE Morphine Sulfate 2 mg 09/14/23 18:49 Morphine 4 Mg/Ml Syr IVP 10/14/23 18:48 Q1H PRN PRN Sodium Chloride 0 ml 09/15/23 06:00 Normal Saline Flush 10 Ml Syr IV 09/15/23 23:59 PRN PRN Sodium Chloride 0 ml 09/15/23 06:00 Normal Saline 10 Ml Vial IJ 09/15/23 23:59 DIRECTED PRN Sterile Water 0 ml 09/15/23 06:00 Water,Injection,Sterile 10 Ml Vial IJ 09/15/23 23:59 DIRECTED PRN Tramadol HCl 100 mg 09/14/23 18:49 Tramadol 50 Mg Tab PO 10/14/23 18:48 Q6H PRN PRN Pain PFSH Active Problems Active Problems: Problem Status Onset Code Right inguinal hernia K40.90 Lung nodules R91.8 Asthma, moderate persistent J45.40 Insomnia G47.00 Nocturia R35.1 Sensorineural hearing loss, bilateral 01/07/16 H90.3 Erectile dysfunction 07/14/14 N52.9 Medical History Medical History Left inguinal hernia Repaired Bradycardia Scoliosis Low back pain Seeing chiropractor with good results. Also increased exercise. Surgical History Surgical History S/P inguinal hernia repair using synthetic patch (~12/08/21) Vasectomy Repair of umbilical hernia (~04/2011) Tobacco Smoking/Tobacco Use Status: Never Passive smoking exposure: Yes Second hand exposure: Yes Alcohol Alcohol Intake: current Alcohol intake frequency: a few times a week Alcohol type: beer, wine and hard liquor Substance Use Substance use: Never Substance use type: does not use Vital Signs and Lab Results Vital Signs Most Recent Vital Signs in EMR: Most Recent Vital Signs Temp Pulse Resp BP Pulse Ox 36.9 C 67 16 145/83 H 98 09/15/23 11:44 09/15/23 11:44 09/15/23 11:44 09/15/23 11:44 09/15/23 11:44 Lab Results Blood Type / Crossmatch: No Data to Display Complete Blood Count: No Data to Display Complete Metabolic Panel: No Data to Display Liver Function Panel: No Data to Display Coagulation Panel: No Data to Display Cardiac Panel: No Data to Display Arterial Blood Gas: No Data to Display Venous Blood Gas: No Data to Display Pancreas Panel: No Data to Display Thyroid Panel: No Data to Display Infectious Disease: No Data to Display Blood Cultures: No Data to Display Toxicology Panel: No Data to Display Imaging and Studies Imaging and Studies Study information below may be from another EMR and interpreted by another provider. Please see original notes in EMR for more complete details. EKG Summary: 08/23 Sinus rhythm...normal P axis, V-rate 60- 99 Nonspecific intraventricular conduction delay...QRSd >115mS, not LBBB/RBBB Pulmonary Function Summary: 08/26: normal PFTs, positive methacholine challenge. Anesthesia Assessment and Plan Anesthesia History Personal History: No History of Anesthesia Complications Family History: No Family History of Anesthesia Complications Exercise Tolerance Exercise Tolerance: Metabolic Equivalents>4 Cardiac & Pulmonary Exam Cardiac Exam: Normal S1/S2 Heart Sounds Pulmonary Exam: Clear Bilateral Breath Sounds Implantable Cardiac Device Does patient have a Pacemaker or an ICD?: No Airway Exam Known Difficult Airway: No Mallampati Class: 2 Mouth Opening: Normal (> 3cm) Thyromental Distance: Greater than 3 cm Neck Range of Motion: Full ROM Neck Circumference: Normal Teeth Condition: Normal Dentition ASA Classification ASA Score: ASA 2 Emergency Case?: No NPO Status NPO Status: NPO Clears >2 hours, Solids >8 hours Anesthesia Plan Resuscitation Status: Full Code Anesthesia Technique: General Anesthesia Airway Planned: LMA Pain Management: Surgeon and patient request nerve block Monitors Used: Standard Monitors Preoperative Comments:: 73 yo male for hernia repair. Sig PMHx: lung nodule, asthma (normal PFTS), LBP, never smoker, occ EtOH. Previous Anes: - hernia, prop, LMA 5, block, no issues. - colo, prop, natural airway, no issues.
[2023-09-15] MEDS: ceFAZolin 2 GM/50 ML BAG IVPB (13:33)
--- NOTE | 2023-09-15 14:07 | W.ANESNERVE ---
Nerve Block Single Injection Procedure Date and Time Date Performed: 09/15/23 Procedure Start: 03:48 Location Where Procedure Performed Procedure Location: Operating Room Procedure Stop: 13:55 Reason Performed: Postoperative Analgesia Requesting Provider: Cameron Pearson Timeout Performed Timeout Performed: Yes Monitoring Used ECG, Blood Pressure, SpO2 and ETCO2 Sterility Sterility: Hand Hygiene, Surgical Cap, Surgical Mask, Sterile Gloves and Chlorhexidine Sedation Given During Procedure Sedation Given (Indicate Dose Given): No Sedation given Patient Mental Status Patient Mental Status: Performed under general anesthesia Nerve Block 1st Nerve Block: Laterality: Right Block Type: TAP Unilateral Ultrasound Image Saved?: Yes Needle / Catheter Used: 100mm SonoPlex II Local Anesthetic Bolus (Indicate Dose Given): Bupivacaine 0.375% Dose:: 7 mL Additives (Indicate Dose Given): None Ultrasound: Sterile probe cover and gel used Nerve Stimulator: Not Used Paresthesia: None Procedure Tolerated: No Complications Procedure Outcome: Successful Performed By: Dwayne Hughes
[2023-09-15] MEDS: Bupivacaine 0.25% Pres-Free 30 ML VIAL (14:32)
--- NOTE | 2023-09-15 15:29 | W.ANESPOSTOP ---
Postoperative Evaluation Date, Time and Location Date Performed: 09/15/23 Time Performed: 15:29 Patient Location: PACU Vital Signs Most Recent Imported Vital Signs: Most Recent Vital Signs Temp Pulse Resp BP Pulse Ox 36.7 C 72 16 113/85 94 09/15/23 15:16 09/15/23 15:16 09/15/23 15:16 09/15/23 15:16 09/15/23 15:16 Pain Score Most Recent Pain Score: Most Recent Pain Score Pain Level 1 09/15/23 15:16 Assessment Mental Status: Awake (Alert & Oriented to Patient Baseline) Airway and Respiratory Function: Patent airway with normal (patient baseline) respiratory exam Cardiovascular Function: Hemodynamically Stable Hydration Status: Adequately Hydrated Nausea & Vomiting: No Nausea or Vomiting Pain: Pt. Denies Any Pain Peripheral Nerve Block: Regional nerve block not resolved at time of post operative discharge
[2023-09-15] MEDS: Normal Saline 10 ML VIAL IJ (15:34)
[2023-09-15] MEDS: HYDROmorphone 2 MG/ML SYR IVP (15:34)
== END 2023-09-15 16:45 | disposition home or self-care (01) ==
LOC: SUR 11:25
PROVIDERS: PCP Nurse Practitioner Family; Visit Provider Surgery
PROC: (CPT 49505; principal; 2023-09-15 13:30)
DX: K40.90 Unilateral inguinal hernia, without obstruction or gangrene, not specified as recurrent (principal); J45.40 Moderate persistent asthma, uncomplicated; R00.1 Bradycardia, unspecified; R91.8 Other nonspecific abnormal finding of lung field
CPT/HCPCS: 49505; 76942; C1781; J0665; J0690; J1100; J1170; J1885; J2405; J2704; J3475

== ENCOUNTER 2023-10-23 04:55 | Outpatient (CLI) | payer OTHER, SELFPAY ==
[2023-10-23 12:17] LABS: HCT 39.1 % (40.0-50.0); HGB 13.3 g/dL (13.5-17.5); MCH 33.8 pg (27.0-33.0); MCV 100 fL (80-95); MPV 10.3 fL (8.0-11.0); Platelet Count 334 10^3/uL (130-400); RBC 3.93 10^6/uL (4.36-5.78); RDW 13.2 % (11.8-14.1); RDW-SD 48.7 fL; WBC 6.38 10^3/uL (4.4-10.8)
[2023-10-23 12:36] LABS: ALT 33 U/L (16-63); AST 31 U/L (15-37); Alkaline Phosphatase 63 U/L (46-116); Anion Gap 10.4 mmol/L (3-11); BUN 19 mg/dL (7-18); Bilirubin, Total 0.5 mg/dL (0.2-1.0); CO2 27.6 mmol/L (21.0-32.0); CREATININE 0.9 mg/dL (0.70-1.30); Calcium 9.6 mg/dL (8.5-10.1); Calculated LDL 94 mg/dL (<100); Chloride 103 mmol/L (98-107); Cholesterol 210 mg/dL (<200); Estimated GFR 91.31 (mL/min/1.73m2); Glucose 105 mg/dL (74-106); HDL Cholesterol 108 mg/dL (40-60); Potassium 4.3 mmol/L (3.5-5.1); Sodium 141 mmol/L (136-145); Total Protein 7.4 g/dL (6.4-8.2); Triglyceride 40 mg/dL (<150)
[2023-10-23 18:18] LABS: PSA, Screening 1.9 ng/mL (<=6.5)
[2023-10-23 18:52] LABS: Hepatitis C Ab w Rflx HCV PCR Negative (Negative)
== END 2023-10-23 04:56 | disposition home or self-care (01) ==
LOC: LOS 04:55
PROVIDERS: PCP Nurse Practitioner Family; Visit Provider Nurse Practitioner Family
DX: Z00.00 Encounter for general adult medical examination without abnormal findings (principal); K40.90 Unilateral inguinal hernia, without obstruction or gangrene, not specified as recurrent; R35.1 Nocturia; R00.1 Bradycardia, unspecified; H90.3 Sensorineural hearing loss, bilateral; N52.9 Male erectile dysfunction, unspecified
CPT/HCPCS: 36415; 80053; 80061; 84153; 85027; 86803; 83036; 84443

== ENCOUNTER 2023-11-17 19:01 | Inpatient (IN) | payer OTHER, SELFPAY ==
[2023-11-17] VITALS (14 sets, daily range): BP systolic 124–168; BP diastolic 75–86; PULSE 80–89; RESP 18–20; TEMP 36–36.6; O2SAT 94–97
--- NOTE | 2023-11-17 19:15 | DI.CT_ITS ---
Exam(s) CT ABDOMEN PELVIS CTA EXAM: CT ABDOMEN PELVIS CTA CLINICAL HISTORY: rectal bleeding, diarrhea. TECHNIQUE: Imaging Protocol: Axial computed tomography images with coronal and sagittal reformatted images were created and reviewed CONTRAST MATERIAL: Intravenous: Omnipaque 350 Contrast volume:100 ml Oral: None COMPARISON: No exams were available for comparison FINDINGS: ABDOMEN: There is no evidence of abdominal aortic aneurysm nor dissection.There is no aneurysmal dilatation of the common iliac arteries.The celiac and superior mesenteric arteries are patent.Renal arteries are patent without significant stenosis nor fibromuscular dysplasia. Aortoiliac segments are patent. No significant stenosis at the aortic bifurcation nor in the iliac v essels. No aneurysms. Internal iliac arteries are patent. There does not appear to be obvious arterial extravasation of contrast evident. LIVER: Somewhat hypodense implying steatosis but no discrete lesions evident in the liver. GALLBLADDER/BILIARY: No obvious gallbladder pathology. CBD is not dilated. PANCREAS: No evidence of pancreatic mass nor dilatation of the pancreatic duct. SPLEEN: Spleen is not enlarged. There are no intrasplenic lesions. Splenic and portal veins are leyva nt. ADRENALS: There are no significant adrenal masses. KIDNEYS: Small cyst in the inferior pole of the left kidney again noted measuring 1.3 x 1.2 cm. Does not require further imaging workup. No calculi nor hydronephrosis. No solid renal masses. ABDOMINAL AORTA: The abdominal aorta is not enlarged. LYMPH NODES: There is no retroperitoneal nor para-aortic adenopathy. No obvious mesenteric masses. ABDOMINAL WALL: No evidence of significant anterior abdominal wall hernia. GI: There is no evidence of bowel obstruction nor free air nor abscess. There is sigmoid diverticuli without evidence of obvious acute diverticulitis. Some hyperdense material is noted in the sigmoid which may be related to ingested contrast or medications PELVIS: LYMPH NODES: There is no intrapelvic nor inguinal adenopathy. GI: No evidence of appendicitis.No evidence of sigmoid diverticulitis. URINARY BLADDER: Bladder wall is uniformly thickened. REPRODUCTIVE: Prostate not enlarged OSSEOUS: No significant osseous lesions. 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 There is approximately 1.2 cm anterior sl ippage of L5 upon S1 and there is advanced disc space narrowing at the L5-S1 level. IMPRESSION: 1. No evidence of aneurysms nor significant atherosclerotic disease in the abdominal aorta and iliac arteries. No obvious extravasation of arterial contrast. 2. Other findings as above. RADIATION DOSE DELIVERED: Total DLP DATA REPOSITORY: All CT scans at this facility are submitted to the National Radiology Data Registry (NRDR) Dose Index Registry (DIR) with the [employer] ([employer]). RADIATION OPTIMIZATION: All CT scans at this facility use at least one of these dose optimization te chniques: automated exposure control; mA and/or kV adjustment per patient size (includes targeted exa ms where dose is matched to clinical indication); or iterative reconstruction.
[2023-11-17] MEDS: Normal Saline 1,000 ML 1000 ML IV (19:34)
[2023-11-17 19:37] LABS: Abs Immature Grans 0.02 10^3/uL (0.0-0.06); Absolute Basophil Count 0.05 10^3/uL (0.0-0.2); Absolute Eosinophil Count 0.14 10^3/uL (0.0-0.7); Absolute Lymphocyte Count 1.78 10^3/uL (1.2-3.4); Absolute Monocyte Count 0.71 10^3/uL (0.1-0.8); Absolute Neutrophil Count 3.08 10^3/uL (1.2-6.7); Basophils % 0.9; Eosinophils % 2.4; HCT 36.2 % (40.0-50.0); HGB 12.1 g/dL (13.5-17.5); Immature Grans % 0.3; Lymphocytes % 30.8; MCH 33.3 pg (27.0-33.0); MCHC 33.4 % (32.0-36.0); MCV 100 fL (80-95); MPV 9.5 fL (8.0-11.0); Monocytes % 12.3; Neutrophils % 53.3; Platelet Count 267 10^3/uL (130-400); RBC 3.63 10^6/uL (4.36-5.78); RDW 13.3 % (11.8-14.1); RDW-SD 49.5 fL; WBC 5.78 10^3/uL (4.4-10.8)
[2023-11-17 19:51] LABS: INR 1.1 (0.9-1.1); PTT Activated 25.3 sec (23.6-32.8); Prothrombin Time 10.6 sec (9.1-11.1)
[2023-11-17 19:53] LABS: ALT 29 U/L (16-63); AST 29 U/L (15-37); Alkaline Phosphatase 64 U/L (46-116); Anion Gap 11.8 mmol/L (3-11); BUN 14 mg/dL (7-18); Bilirubin, Total 0.6 mg/dL (0.2-1.0); CO2 25.2 mmol/L (21.0-32.0); CREATININE 0.8 mg/dL (0.70-1.30); Calcium 8.8 mg/dL (8.5-10.1); Chloride 104 mmol/L (98-107); Estimated GFR 94.62 (mL/min/1.73m2); Glucose 94 mg/dL (74-106); Potassium 3.8 mmol/L (3.5-5.1); Sodium 141 mmol/L (136-145); Total Protein 7.1 g/dL (6.4-8.2)
--- NOTE | 2023-11-17 19:58 | ED.GENADUL_ITS ---
Discharge Plan Disposition Patient Disposition: Admit to [facility] Condition: Stable Discharge Details Chief Complaint: GI Bleed Clinical Impression: Acute lower gastrointestinal bleeding Primary Care Provider: Judy Stevens ED Provider: Jacinto Hutchison Home Meds and New Rx's Prescriptions: No Action (DME) BreatheRite MDI Spacer Spacer See Rx Instructions .ROUTE .MEDSUPPLY Qty: 1 0RF Rx Instructions: As directed (DME) peak flow meter Device See Rx Instructions .Route Qty: 1 0RF Rx Instructions: As directed CENTRUM TABLET 1 EACH tablet 1 ea PO DAILY budesonide-formoterol [Symbicort] 160-4.5 mcg/actuation HFA aerosol inhaler 2 inh INHALATION BID tadalafil 5 mg tablet 5 mg PO DAILY Qty: 90 4RF zolpidem 6.25 mg tablet,ext release multiphase 12.5 mg PO HS PRN (Reason: insomnia) Qty: 30 1RF HPI General Date/Time Provider Initiated Documentation: 11/17/23 19:15 . HPI Narrative: 73-year-old male presents after 1 day of diarrhea multiple loose stools over the course of 24 hours presents after passing dark red blood and blood clots per rectum. Does have history of external hemorrhoid. Denies abdominal pain nausea vomiting fevers weight loss chills or other systemic signs of illness. Endorses normal colonoscopy within the last couple of years Related Data Home Medications Medication Instructions Recorded Confirmed Centrum Tablet 1 ea PO DAILY 07/11/13 11/17/23 inhalational spacing device #1 ea 05/01/23 10/31/23 (BreatheRite MDI Spacer) peak flow meter #1 ea 05/31/23 10/31/23 budesonide-formoterol HFA 160 2 inh inhalation BID 08/01/23 11/17/23 mcg-4.5 mcg/actuation aerosol inhaler (Symbicort) tadalafil 5 mg tablet 5 mg PO DAILY #90 tabs 09/21/23 11/17/23 zolpidem 6.25 mg tablet,extended 12.5 mg (2 x 6.25 mg) PO HS PRN 10/19/23 11/17/23 release,multiphase insomnia #30 tab-caps Previous Rx's Medication Instructions Recorded inhalational spacing device #1 ea 05/01/23 (BreatheRite MDI Spacer) peak flow meter #1 ea 05/31/23 tadalafil 5 mg tablet 5 mg PO DAILY #90 tabs 09/21/23 zolpidem 6.25 mg tablet,extended 12.5 mg (2 x 6.25 mg) PO HS PRN 10/19/23 release,multiphase insomnia #30 tab-caps Allergies Allergy/AdvReac Type Severity Reaction Status Date / Time sulfamethoxazole AdvReac Mild GI Upset Verified 11/17/23 19:09 General Stated Complaint: GI Bleed [place]: 3 Review of Systems Narrative: Review of Systems Constitutional: negative Eyes: negative ENT: negative Cardiovascular: negative Respiratory: negative Gastrointestinal: negative : Rectal bleeding Musculoskeletal: negative Skin: negative Neurologic: negative Psych: negative Exam Narrative Exam Narrative: Physical Examination General: alert, awake, cooperative, resting comfortably, no acute distress HEENT: normocephalic, atraumatic; PERRL, EOM intact, conjunctiva normal; no nasal discharge; moist mucous membranes, oral and pharyngeal mucosa normal, tolerating secretions Neck: supple, trachea midline; full ROM Chest: normal to inspection Respiratory: normal respiratory effort, speaking in full sentences, clear to auscultation, no wheezing, rales or rhonchi Cardiac: regular rate, regular rhythm, S1S2 intact, no murmurs rubs or gallops GI: abdomen soft, non-tender, non-distended; no palpable mass or hepatosplenomegaly; nonthrombosed external hemorrhoid nonbleeding, no appreciable rectal mass on digital rectal examination, maroon blood on rectal examination Skin: no lesions, rashes or trauma appreciated Neuro: AAOx3, normal speech, moving all extremities Psych: Appropriate mood and affect Course Vital Signs Vital signs: Vital Signs Temperature 36.6 C 11/17/23 19:06 Pulse 82 11/17/23 19:06 Respiratory Rate 18 11/17/23 19:06 Blood Pressure 168/86 H 11/17/23 19:06 Pulse Oximetry 95 11/17/23 19:06 Temperature 36.6 C 11/17/23 19:06 Temperature Source Oral 11/17/23 19:06 Pulse 82 11/17/23 19:06 Respiratory Rate 18 11/17/23 19:06 Respiratory Effort Normal 11/17/23 19:08 Blood Pressure 168/86 H 11/17/23 19:06 Blood Pressure Position Sitting 11/17/23 19:06 Pulse Oximetry 95 11/17/23 19:06 Oxygen Delivery Method Room Air 11/17/23 19:06 Oxygen Flow Rate 0 11/17/23 19:06 Lab/Test Results Lab/Test Results: Laboratory Tests Range/Units 11/17/23 19:30 WBC (4.4-10.8) 10^3/uL 5.78 RBC (4.36-5.78) 10^6/uL 3.63 L Hgb (13.5-17.5) g/dL 12.1 L Hct (40.0-50.0) % 36.2 L MCV (80-95) fL 100 H MCH (27.0-33.0) pg 33.3 H MCHC (32.0-36.0) % 33.4 RDW (11.8-14.1) % 13.3 Plt Count (130-400) 10^3/uL 267 MPV (8.0-11.0) fL 9.5 Immature Gran % 0.3 Neutrophils % 53.3 Lymphocytes % 30.8 Monocytes % 12.3 Eosinophils % 2.4 Basophils % 0.9 Nucleated RBC % (0.0-0.3) % 0.0 Absolute Neutrophils (1.2-6.7) 10^3/uL 3.08 Absolute Lymphocytes (1.2-3.4) 10^3/uL 1.78 Absolute Monocytes (0.1-0.8) 10^3/uL 0.71 Absolute Eosinophils (0.0-0.7) 10^3/uL 0.14 Absolute Basophils (0.0-0.2) 10^3/uL 0.05 PT (9.1-11.1) sec 10.6 INR (0.9-1.1) 1.1 APTT (23.6-32.8) sec 25.3 Sodium (136-145) mmol/L 141 Potassium (3.5-5.1) mmol/L 3.8 Chloride (98-107) mmol/L 104 Carbon Dioxide (21.0-32.0) mmol/L 25.2 Anion Gap (3-11) mmol/L 11.8 H BUN (7-18) mg/dL 14 Creatinine (0.70-1.30) mg/dL 0.8 Est GFR (CKD-EPI 2021) (mL/min/1.73m2) 94.62 Glucose (74-106) mg/dL 94 Calcium (8.5-10.1) mg/dL 8.8 Total Bilirubin (0.2-1.0) mg/dL 0.6 AST (15-37) U/L 29 ALT (16-63) U/L 29 Alkaline Phosphatase (46-116) U/L 64 Total Protein (6.4-8.2) g/dL 7.1 Albumin (3.4-5.0) g/dL 4.0 Medical Decision Making 73-year-old male presents with painless rectal bleeding noticed this evening, after 24 hours of loose stool. No abdominal pain nausea vomiting fevers chills weight loss or systemic signs of illness. Hemodynamically stable afebrile nontoxic. Nonbleeding nonthrombosed external hemorrhoid on rectal exam, no appreciable mass on digital rectal exam, maroon blood on digital rectal exam. Consider bleeding internal hemorrhoid versus anal fissure versus colitis versus malignancy. Screening labs imaging close reassessment 22: 21 patient was comfortably no acute distress. Did have 1 episode of bloody stool here in department. Received 1 L crystalloid at arrival, hemoglobin went from 12.1-10.8. Consider component of delusional drop. Will observe overnight have contacted surgeon Dr. Barrett for admission. Patient not on any blood thinners resting comfortably hemodynamically stable. Quality:SDOH Health Related Social Needs: No Data to Display PFSH All Active Problems (Updated 11/17/23 @ 22:32 by Jacinto Hutchison MD) Acute lower gastrointestinal bleeding (Acute) Right inguinal hernia (Acute) Lung nodules (Acute) Asthma, moderate persistent (Chronic) normal PFTs without BD response 06/26 Insomnia (Acute) Nocturia (Acute) Sensorineural hearing loss, bilateral (Acute 01/07/16) Erectile dysfunction (Acute 07/14/14) Medical History Left inguinal hernia Repaired Bradycardia Scoliosis Low back pain Seeing chiropractor with good results. Also increased exercise. Surgical History History of inguinal hernia repair (~09/2023) S/P inguinal hernia repair using synthetic patch (~12/08/21) Vasectomy Repair of umbilical hernia (~04/2011) Family History Mother , age 71 Breast cancer Cervical cancer Father , age 85 Essential hypertension Cancer of kidney Sister , age 56 Stroke Maternal Grandfather Prostate cancer Paternal Grandfather Diabetes Maternal Grandmother No problems noted. Paternal Grandmother Cancer Sister No problems noted. Son No problems noted. Daughter No problems noted. Social History Smoking/Tobacco Use Status: Never Second Hand Exposure: Yes Smoking risk assessment performed?: Yes Alcohol Intake: current Alcohol Intake frequency: 3 or more drinks per day Alcohol type: beer, wine and hard liquor Drug use: Never Substance use type: does not use Caregiver/Support person: No Household members: spouse Housing: house Communication Needs: Hard of Hearing Do you need help understanding health information?: Never Pets and animals: No Sexually active: Yes Do you think of yourself as: straight/heterosexual Current gender identity: male What is your relationship status?: How often do you talk on the phone with friends or family?: three or more times per week How often do you get together with friends or relatives?: twice per week How often do you attend episcopalian or rastafarian services?: 1-3 times per year Do you belong to any clubs or organized social groups?: yes Panel score (0-1 are the most socially isolated patients): 3 What type of physical activity do you participate in: walking and weight liftin g Duration: 30-45 minutes/day Frequency: 3-4 times per week Nicole/Rastafari: Congregational Special nicole needs: No Seatbelt use: always Helmet use: Yes Helmet use: always Drive intox 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
[2023-11-17] MEDS: Omnipaque 350 MG/ML 100 ML BTL IJ (20:13)
[2023-11-17] MEDS: Normal Saline - Diluent 50 ML VIAL IJ (20:16)
--- NOTE | 2023-11-17 21:17 | DI.VRAD_ITS ---
Addendum created by Gio Loya MD on 11/17/2023 9:30:58 PM EDT: THIS REPORT CONTAINS FINDINGS THAT MAY BE CRITICAL TO PATIENT CARE. The findings were verbally communicated via telephone conference with Jacinto Hutchison at 9:28 PM EDT on 11/17/2023. The findings were acknowledged and understood. Initial report created on 11/17/2023 9:17:12 PM EDT: PROCEDURE INFORMATION: Exam: CTA Abdomen and Pelvis With Contrast Exam date and time: 11/17/2023 8:07 PM Age: 73 years old Clinical indication: Other: Rectal bleeding, diarrhea TECHNIQUE: Imaging protocol: Computed tomographic angiography of the abdomen and pelvis with contrast. Exam focused on the arteries. 3D rendering (Not supervised by radiologist): MIP and/or 3D reconstructed images were created by the technologist. Contrast material: 350; Contrast volume: 100 ml; Contrast route: INTRAVENOUS (IV); COMPARISON: CT CHEST WO 07/03/2023 3:06 PM FINDINGS: Lungs: Mild bronchiectasis noted in the lower lobes. Mild peripheral reticulation noted. Heart: No pericardial effusion. Aorta: No aneurysm. No dissection. No stenosis. No significant plaque. Celiac trunk and mesenteric arteries: No stenosis. No dissection. The site of suspected contrast extravasation is from a distal branch in the inferior mesenteric artery territory. Renal arteries: No stenosis. No dissection. No occlusion. Right iliac arteries: No occlusion or significant stenosis. Left iliac arteries: No occlusion or significant stenosis. Liver: Fatty infiltration of the liver. No suspicious mass. Gallbladder and bile ducts: Unremarkable. No calcified stones. No ductal dilation. Pancreas: Unremarkable. No mass. No ductal dilation. Spleen: Unremarkable. No splenomegaly. Adrenal glands: Unremarkable. No mass. Kidneys and ureters: Symmetric enhancement. No hydronephrosis. Non-dilated ureters. No stones. Stomach and bowel: Duodenal diverticulum incidentally noted, 1.9 cm. Unremarkable stomach. Nondilated small bowel. Most of the colon is collapsed, with mild stool and gas. Extensive diverticulosis is noted throughout the colon. The rectum is distended with fluid. The ambrosio appear thin. Contrast extravasation is observed in the lower rectum, posteriorly on the left, 4 o'clock position; see disability representative axial image 688 series 5. Appendix: No evidence of appendicitis. Intraperitoneal space: No free fluid. No free air. No abscess. Lymph nodes: Unremarkable. No enlarged lymph nodes. Urinary bladder: Unremarkable. Reproductive: Large prostate. Bones/joints: Negative for compression fracture. Multilevel degenerative disc disease and facet arthropathy noted. 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 Anterolisthesis L5 on S1 measures 11 mm. Soft tissues: There are no fluid collections at the perineum. There is no significant abdominal wall hernia. IMPRESSION: 1. Arterial bleeding at the inferior rectum near the rectal anal junction, 4 o'clock position. 2. Additional findings as described. Dictated and Authenticated by: Gio Loya MD. Ordering:JANIA Casey MD
[2023-11-17 21:45] LABS: HCT 31.9 % (40.0-50.0); HGB 10.8 g/dL (13.5-17.5)
--- NOTE | 2023-11-17 23:01 | W.PM.HP.N ---
Date of service: 11/18/23 Time of Service: 12:16 Assessment and Plan Assessment and plan (1) Sensorineural hearing loss, bilateral: Status: Acute (2) Acute lower gastrointestinal bleeding: Status: Acute Assessment and plan: -check feritin -trend hgb -if bleeding does not stop spontaneously, CE and cautery vs transfer for embolization -hold NSAIDs/fish oil -see HPI This document was created with voice activated software and may contain errors. 60 mins spent with the patient today. (3) Nocturia: Status: Acute (4) Asthma, moderate persistent: Status: Chronic Qualifiers: Asthma complication type: with acute exacerbation Qualified Code(s): J45.41 - Moderate persistent asthma with (acute) exacerbation (5) Insomnia: Status: Acute (6) Bradycardia: (7) Pancolonic diverticulosis: Status: Acute (8) Scoliosis: (9) Steatosis: Status: Acute (10) DJD (degenerative joint disease), lumbar: Status: Acute (11) BPH associated with nocturia: Status: Acute History of Present Illness Narrative: Patient is a 73-year-old otherwise healthy male who presented to the ER on 11/16 with rectal bleeding. He was admitted overnight for observation. He had no bleeding since he has been in the emergency room. Patient describes the bleeding as a large volume of bright red blood mixed with stool. He states he does not have constipation and actually has diarrhea. This seems to occur if he has eaten something or become very stressed. He does take fiber supplement daily. He did have diarrhea on . He denies eating any unusual food. He denies any trauma. He denies any travel. No one else at home is ill. No fever or chills. No abdominal pain. He does have severe diverticular disease throughout the entirety of the colon noted on his last colonoscopy, which I did review. I did review his CT scan as well. There was active bleeding noted at the time of CT scan. Today patient notes he has not had any bleeding since he was in the ER. He has no abdominal pain no fever or chills. He is hungry. Today we discussed doing a flex sig to see if there is any cause for the active bleeding noted on CT. Risks include anesthesia. Bleeding, infection, perforation, and other on for total risks. Patient has had colonoscopy in the past without problems. He does complain of pain from his hemorrhoids. Exam he does have some small external hemorrhoids. There is no signs of active bleeding or thrombosis. We will plan for complex flex sig this afternoon to see if we can identify the areas of bleeding. Patient does not take a Aspirin daily. He does not take a lot of NSAIDs. He does take fish oil daily. He has never had a heart attack or stroke. CTA 11/17/23 COMPARISON: CT CHEST WO 07/03/2023 3:06 PM FINDINGS: Lungs: Mild bronchiectasis noted in the lower lobes. Mild peripheral reticulation noted. Heart: No pericardial effusion. Aorta: No aneurysm. No dissection. No stenosis. No significant plaque. Celiac trunk and mesenteric arteries: No stenosis. No dissection. The site of suspected contrast extravasation is from a distal branch in the inferior mesenteric artery territory. Renal arteries: No stenosis. No dissection. No occlusion. Right iliac arteries: No occlusion or significant stenosis. Left iliac arteries: No occlusion or significant stenosis. Liver: Fatty infiltration of the liver. No suspicious mass. Gallbladder and bile ducts: Unremarkable. No calcified stones. No ductal dilation. Pancreas: Unremarkable. No mass. No ductal dilation. Spleen: Unremarkable. No splenomegaly. Adrenal glands: Unremarkable. No mass. Kidneys and ureters: Symmetric enhancement. No hydronephrosis. Non-dilated ureters. No stones. Stomach and bowel: Duodenal diverticulum incidentally noted, 1.9 cm. Unremarkable stomach. Nondilated small bowel. Most of the colon is collapsed, with mild stool and gas. Extensive diverticulosis is noted throughout the colon. The rectum is distended with fluid. The ambrosio appear thin. Contrast extravasation is observed in the lower rectum, posteriorly on the left, 4 o'clock position; see branch service representative axial image 688 series 5. Appendix: No evidence of appendicitis. Intraperitoneal space: No free fluid. No free air. No abscess. Lymph nodes: Unremarkable. No enlarged lymph nodes. Urinary bladder: Unremarkable. Reproductive: Large prostate. Bones/joints: Negative for compression fracture. Multilevel degenerative disc disease and facet arthropathy noted. 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 Anterolisthesis L5 on S1 measures 11 mm. Soft tissues: There are no fluid collections at the perineum. There is no significant abdominal wall hernia. IMPRESSION: 1. Arterial bleeding at the inferior rectum near the rectal anal junction, 4 o'clock position. Colonoscopy Report Date of procedure: 06/18/18 Pre-op diagnosis general: Colon Cancer screening Post-op diagnosis procedure note: same (and Masterson-diverticulosis, external hemorrhoid) Procedure: Colonoscopy Surgeon: Sapphire Bran Anesthesia proc note operative: MAC (Audrey Mercado CRNA) Estimated blood loss (mL): 0 Pathology: none sent Complications: None Disposition: same day Indications: Mr. Albert was seen in the office for a colonoscopy. Risks, benefits and complications were reviewed and he wished to proceed. No guarantees were given or implied. Prep: Miralax/Dulcolax Procedure Start Time: 08:39 Procedure End Time: 09:10 Retraction Time: 21 minutes Findings: Masterson-diverticulosis and external hemorrhoid Procedure Description: After informed consent was obtained the patient was taken to the procedure room and placed in a left decubitous position. Monitors were applied and a time out was done. The patients name, date of , procedure, allergies to medications and metal in their body was reviewed. The patient was then sedated. Once sedated and comfortable a rectal exam was done. External exam revealed an external hemorrhoid. Internal exam revealed a normal sphincter tone and no palpable masses. The prostate was normal. The scope was then introduced and retroflexed. No internal hemorrhoids were identified. The scope was then advanced to the cecum without difficulty. The TI and appendiceal orifice were identified. The prep was adequate. The scope was then slowly retracted over 21 minutes back into the rectum. The scope was removed and the patient was woken up and taken back to Same day surgery in stable condition. Review of Systems All systems reviewed & are unremarkable except as noted in HPI and below PFSH All Active Problems (Updated 11/17/23 @ 23:17 by Kirsten Barrett DO) BPH associated with nocturia (Acute) DJD (degenerative joint disease), lumbar (Acute) Steatosis (Acute) Pancolonic diverticulosis (Acute) Acute lower gastrointestinal bleeding (Acute) Right inguinal hernia (Acute) Lung nodules (Acute) Asthma, moderate persistent (Chronic) normal PFTs without BD response 06/26 Insomnia (Acute) Nocturia (Acute) Sensorineural hearing loss, bilateral (Acute 01/07/16) Erectile dysfunction (Acute 07/14/14) Medical History Left inguinal hernia Repaired Bradycardia Scoliosis Low back pain Seeing chiropractor with good results. Also increased exercise. Surgical History History of inguinal hernia repair (~09/2023) S/P inguinal hernia repair using synthetic patch (~12/08/21) Vasectomy Repair of umbilical hernia (~04/2011) Family History Mother , age 71 Breast cancer Cervical cancer Father , age 85 Essential hypertension Cancer of kidney Sister , age 56 Stroke Maternal Grandfather Prostate cancer Paternal Grandfather Diabetes Maternal Grandmother No problems noted. Paternal Grandmother Cancer Sister No problems noted. Son No problems noted. Daughter No problems noted. Social History Smoking/Tobacco Use Status: Never Second Hand Exposure: Yes Smoking risk assessment performed?: Yes Alcohol Intake: current Alcohol Intake frequency: 3 or more drinks per day Alcohol type: beer, wine and hard liquor Drug use: Never Substance use type: does not use Caregiver/Support person: No Household members: spouse Housing: house Communication Needs: Hard of Hearing Do you need help understanding health information?: Never Pets and animals: No Sexually active: Yes Do you think of yourself as: straight/heterosexual Current gender identity: male What is your relationship status?: How often do you talk on the phone with friends or family?: three or more times per week How often do you get together with friends or relatives?: twice per week How often do you attend gnosticism or christianity services?: 1-3 times per year Do you belong to any clubs or organized social groups?: yes Panel score (0-1 are the most socially isolated patients): 3 What type of physical activity do you participate in: walking and weight lifting Duration: 30-45 minutes/day Frequency: 3-4 times per week Nicole/Holiness: Pentecostalism Special nicole needs: No Seatbelt use: always Helmet use: Yes Helmet use: always Drive 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 Do you feel safe at home: Yes Do you feel safe in your relationship?: Yes Victim of physical abuse: No Victim of emotional abuse: No Victim of sexual abuse: No Would you like helpful sources: No Meds Allergies and Home Medications Allergies Allergy/AdvReac Type Severity Reaction Status Date / Time sulfamethoxazole AdvReac Mild GI Upset Verified 11/17/23 19:09 Home Medications Medication Instructions Recorded Confirmed Type Centrum Tablet 1 ea PO DAILY 07/11/13 11/17/23 History inhalational spacing device #1 ea 05/01/23 11/18/23 Rx (BreatheRite MDI Spacer) budesonide-formoterol HFA 160 2 inh inhalation BID 08/01/23 11/17/23 History mcg-4.5 mcg/actuation aerosol inhaler (Symbicort) tadalafil 5 mg tablet 5 mg PO DAILY #90 tabs 09/21/23 11/17/23 Rx zolpidem 6.25 mg tablet,extended 12.5 mg (2 x 6.25 mg) PO HS PRN 10/19/23 11/17/23 Rx release,multiphase insomnia #30 tab-caps Exam Narrative Exam Narrative: PHYSICAL EXAM GENERAL APPEARANCE: Alert, healthy appearance, oriented, x 3,? in no acute distress HYDRATION: Well hydrated HEAD, EYES, EARS, NECK, THROAT: Head is normocephalic, pupils equal, round, reactive to light and accommodation, ocular movement intact, sclera clear and no jaundice. ?Dentition intact. LUNGS: normal respiration/normal chest excursion. ?Clear to auscultation bilaterally. ?No wheeze. ?HEART: Regular rate and rhythm. no murmurs ABDOMEN: soft and non-tender to palpation.? Normal bowel sounds.? See HPI Results Labs 11/18/23 06:25 11/18/23 06:25 Labs: Laboratory Results - last 24 hr 11/17/23 11/17/23 11/17/23 19:30 19:45 21:35 WBC 5.78 RBC 3.63 L Hgb 12.1 L 10.8 L Hct 36.2 L 31.9 L MCV 100 H MCH 33.3 H MCHC 33.4 RDW 13.3 Plt Count 267 MPV 9.5 Immature Gran % 0.3 Neutrophils % 53.3 Lymphocytes % 30.8 Monocytes % 12.3 Eosinophils % 2.4 Basophils % 0.9 Nucleated RBC % 0.0 Absolute Neutrophils 3.08 Absolute Lymphocytes 1.78 Absolute Monocytes 0.71 Absolute Eosinophils 0.14 Absolute Basophils 0.05 PT 10.6 INR 1.1 APTT 25.3 Sodium 141 Potassium 3.8 Chloride 104 Carbon Dioxide 25.2 Anion Gap 11.8 H BUN 14 Creatinine 0.8 Est GFR (CKD-EPI 2020) 94.62 Glucose 94 Calcium 8.8 Total Bilirubin 0.6 AST 29 ALT 29 Alkaline Phosphatase 64 Total Protein 7.1 Albumin 4.0 Patient ABO/Rh A Positive Antibody Screen NEGATIVE Last Vital Signs Temp 36.6 C 11/17/23 19:06 Pulse 82 11/17/23 19:06 Resp 18 11/17/23 19:06 BP 168/86 H 11/17/23 19:06 Pulse Ox 95 11/17/23 19:06 Time Spent Time spent with Patient: 55-74 minutes Time was spent: preparing to see the patient(eg.review tests), obtaining and/or reviewing separately otained hiistory, ordering medications,tests, procedures, referring, communicating with other health career technology teacher, indepentently interpreting results, counseling the patient and care coordination
[2023-11-17 23:23] LABS: Lab Add On Test DONE
[2023-11-17 23:47] LABS: Ferritin 189 ng/mL (26-388)
[2023-11-17 23:55] LABS: C-Reactive Protein < 0.50 mg/dL (<or=0.5)
[2023-11-18] VITALS (7 sets, daily range): BP systolic 102–138; BP diastolic 57–78; PULSE 73–91; RESP 18–19; TEMP 36.3–37.2; O2SAT 92–99; BMI 25.9
[2023-11-18 06:45] LABS: Abs Immature Grans 0.02 10^3/uL (0.0-0.06); Absolute Basophil Count 0.04 10^3/uL (0.0-0.2); Absolute Lymphocyte Count 1.43 10^3/uL (1.2-3.4); Absolute Monocyte Count 0.68 10^3/uL (0.1-0.8); Absolute Neutrophil Count 4.86 10^3/uL (1.2-6.7); Basophils % 0.6; Eosinophils % 1.4; HCT 30.2 % (40.0-50.0); HGB 10.2 g/dL (13.5-17.5); Immature Grans % 0.3; Lymphocytes % 20.1; MCHC 33.8 % (32.0-36.0); MCV 101 fL (80-95); MPV 9.8 fL (8.0-11.0); Monocytes % 9.5; Neutrophils % 68.1; Platelet Count 246 10^3/uL (130-400); RDW 13.6 % (11.8-14.1); RDW-SD 50.4 fL; WBC 7.13 10^3/uL (4.4-10.8)
[2023-11-18 06:59] LABS: Anion Gap 10.4 mmol/L (3-11); BUN 12 mg/dL (7-18); CO2 24.6 mmol/L (21.0-32.0); CREATININE 0.8 mg/dL (0.70-1.30); Calcium 8.5 mg/dL (8.5-10.1); Chloride 107 mmol/L (98-107); Estimated GFR 94.62 (mL/min/1.73m2); Glucose 108 mg/dL (74-106); Sodium 142 mmol/L (136-145)
[2023-11-18] MEDS: Budesonide/Formoterol 160/4.5 6 GM 60 PUFF INH IH ×2 (08:17→19:29)
[2023-11-18] MEDS: Normal Saline Flush 10 ML SYR IVP ×2 (08:22→19:29)
--- NOTE | 2023-11-18 12:13 | INITIAL_ITS ---
Date of service: 11/18/23 Care Management Initial Assmt Initial Assessment REASON FOR HOSPITALIZATION:: Rectal bleed PREVIOUS FUNCTIONAL STATUS/SOCIAL/FAMILY SUPPORTS:: Roosevelt lives in [place] with Faith. CURRENT FUNCTIONAL STATUS:: Roosevelt was sitting up in bed visiting with family when CM arrived. He was walking the halls with his family prior to CM visiting. Roosevelt anticipates discharge tomorrow morning, CM let them know can assist w ith this and help provide connection to services should there be a need. Per Pt and family, no services should be needed and they will continue to be support for Roosevelt. He is independent at baseline. CM following. ADVANCE DIRECTIVES:: None on file with [facility] Has patient been provided with info about the portal/API?: Yes Did the patient sign up for the portal?: Yes CODE STATUS:: Full Code INSURANCE COVERAGE / FINANCIAL ISSUES:: [employer] ([facility] ONLY) PRIMARY CARE PHYSICIAN:: Judy Stevens NP PATIENT/FAMILY EDUCATION NEEDS:: Review discharge instructions and limitations, discussion of self care needs including Ask Me Three TRANSPORTATION:: Roosevelt will transport home via private vehicle PLAN:: When medically cleared, Roosevelt will discharge home via private vehicle with no new services. He will follow up with his PCP and plan of care instructions. CM following. PFSH All Active Problems (Updated 11/17/23 @ 23:17 by Kirsten Barrett DO) BPH associated with nocturia (Acute) DJD (degenerative joint disease), lumbar (Acute) Steatosis (Acute) Pancolonic diverticulosis (Acute) Acute lower gastrointestinal bleeding (Acute) Right inguinal hernia (Acute) Lung nodules (Acute) Asthma, moderate persistent (Chronic) normal PFTs without BD response 06/26 Insomnia (Acute) Nocturia (Acute) Sensorineural hearing loss, bilateral (Acute 01/07/16) Erectile dysfunction (Acute 07/14/14) Medical History Left inguinal hernia Repaired Bradycardia Scoliosis Low back pain Seeing chiropractor with good results. Also increased exercise. Surgical History History of inguinal hernia repair (~09/2023) S/P inguinal hernia repair using synthetic patch (~12/08/21) Vasectomy Repair of umbilical hernia (~04/2011) Family History Mother , age 71 Breast cancer Cervical cancer Father , age 85 Essential hypertension Cancer of kidney Sister , age 56 Stroke Maternal Grandfather Prostate cancer Paternal Grandfather Diabetes Maternal Grandmother No problems noted. Paternal Grandmother Cancer Sister No problems noted. Son No problems noted. Daughter No problems noted. Social History Smoking/Tobacco Use Status: Never Second Hand Exposure: Yes Smoking risk assessment performed?: Yes Alcohol Intake: current Alcohol Intake frequency: 3 or more drinks per day Alcohol type: beer, wine and hard liquor Drug use: Never Substance use type: does not use Caregiver/Support person: No Household members: spouse Housing: house Communication Needs: Hard of Hearing Do you need help understanding health information?: Never Pets and animals: No Sexually active: Yes Do you think of yourself as: straight/heterosexual Current gender identity: male What is your relationship status?: How often do you talk on the phone with friends or family?: three or more times per week How often do you get together with friends or relatives?: twice per week How often do you attend anabaptism or temple services?: 1-3 times per year Do you belong to any clubs or organized social groups?: yes Panel score (0-1 are the most socially isolated patients): 3 What type of physical activity do you participate in: walking and weight lifting Duration: 30-45 minutes/day Frequency: 3-4 times per week Nicole/Adventism: Nondenominational Special nicole needs: No Seatbelt use: always Helmet use: Yes Helmet use: always Drive intox or ride w/intox 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: No Do you feel safe at home: Yes Do you feel safe in your relationship?: Yes Victim of physical abuse: No Victim of emotional abuse: No Victim of sexual abuse: No Would you like helpful sources: No SDOH(Care Management) Screening Will the Patient Participate in the Screening?: Yes Do you worry about having a steady place to live?: no In the past 12 months, have you had to go without electric, gas, oil or water in your home?: no Have you or anyone in your house had to go without enough food to eat?: no Has lack of transportation kept you from medical appointments or from doing things needed for daily living?: no Has anyone in your support network made you feel unsafe for any reason?: no
[2023-11-18] MEDS: Lactated Ringers 1,000 ML 125 ML IV (12:48)
--- NOTE | 2023-11-18 13:05 | ANES.PREOP_ITS ---
General Info Date of Service Date Performed: 11/18/23 Height: 5 ft 8 in Weight: 77.2 kg Body Mass Index (BMI): 25.9 Meds Allergies and Home Medications Allergies Allergy/AdvReac Type Severity Reaction Status Date / Time sulfamethoxazole AdvReac Mild GI Upset Verified 11/17/23 19:09 Home Medication Medication Instructions Recorded Centrum Tablet 1 ea PO DAILY 07/11/13 inhalational spacing device #1 ea 05/01/23 (BreatheRite MDI Spacer) budesonide-formoterol HFA 160 2 inh inhalation BID 08/01/23 mcg-4.5 mcg/actuation aerosol inhaler (Symbicort) tadalafil 5 mg tablet 5 mg PO DAILY #90 tabs 09/21/23 zolpidem 6.25 mg tablet,extended 12.5 mg (2 x 6.25 mg) PO HS PRN 10/19/23 release,multiphase insomnia #30 tab-caps Current Visit Medications: Current Medications Generic Name Dose Route Start Last Admin Trade Name Freq PRN Reason Stop Dose Admin Acetaminophen 1,000 mg 11/17/23 23:11 Acetaminophen 500 Mg Tab PO Q8H PRN PRN Abdominal Pain Albuterol Sulfate 2.5 mg 11/17/23 23:07 Albuterol 2.5 Mg/3 Ml Inh Soln Vial UPD Q4H PRN PRN Budesonide/Formoterol Fumarate 2 puff 11/18/23 08:30 11/18/23 08:17 Budesonide/Formoterol 160/4.5 6 Gm 60 Puff Inh IH 2 puffs BID NATE Administration Device 1 each 11/17/23 23:45 Inhaler, Assist Device MC DIRECTED NATE Sodium Chloride 1,000 mls @ 75 mls/hr 11/17/23 23:15 Saline 1000ml Bag IV INFUSION NATE Ringer's Solution 1,000 mls @ 125 mls/hr 11/18/23 12:45 11/18/23 12:48 IV 125 mls/hr INFUSION NATE Administration IV Miscellaneous Supplies 1 each 11/17/23 23:15 Iv Access IV DIRECTED NATE Iohexol 100 ml 11/17/23 20:15 11/17/23 20:13 Omnipaque 350 Mg/Ml 100 Ml Btl IJ 12/17/23 23:59 100 ml DIRECTED NATE Administration Lidocaine 1 patch 11/18/23 08:30 11/18/23 08:20 Lidocaine 5% Patch TP Not Given DAILY NATE Miscellaneous 1 each 11/18/23 20:30 Patch Removal TP 2030 NATE Morphine Sulfate 2 mg 11/17/23 23:07 Morphine 2 Mg/Ml Syr IVP Q1H PRN PRN Ondansetron HCl 4 mg 11/17/23 23:07 Ondansetron 4 Mg/2 Ml Vial IVP Q4H PRN PRN Sodium Chloride 50 ml 11/17/23 20:15 11/17/23 20:16 Normal Saline - Diluent 50 Ml Vial IJ 50 ml .FOR DI USE NATE Administration Sodium Chloride 0 ml 11/17/23 23:07 Normal Saline Flush 10 Ml Syr IVP PRN PRN Sodium Chloride 0 ml 11/18/23 08:30 11/18/23 08:22 Normal Saline Flush 10 Ml Syr IVP 20 ml BID NATE Administration Sodium Chloride 0 ml 11/17/23 23:07 Normal Saline 10 Ml Vial IJ DIRECTED PRN Zolpidem Tartrate 12.5 mg 11/17/23 23:14 Zolpidem 6.25 Mg Tabcr PO HS PRN PRN insomnia PFSH Active Problems Active Problems: Problem Status Onset Code BPH associated with nocturia N40.1, R35.1 DJD (degenerative joint disease), lumbar M47.816 Steatosis E88.89 Pancolonic diverticulosis K57.30 Acute lower gastrointestinal bleeding K92.2 Right inguinal hernia K40.90 Lung nodules R91.8 Asthma, moderate persistent J45.40 Insomnia G47.00 Nocturia R35.1 Sensorineural hearing loss, bilateral 01/07/16 H90.3 Erectile dysfunction 07/14/14 N52.9 Medical History Medical History Left inguinal hernia Repaired Bradycardia Scoliosis Low back pain Seeing chiropractor with good results. Also increased exercise. Surgical History Surgical History History of inguinal hernia repair (~09/2023) S/P inguinal hernia repair using synthetic patch (~12/08/21) Vasectomy Repair of umbilical hernia (~04/2011) Tobacco Smoking/Tobacco Use Status: Never Passive smoking exposure: No Second hand exposure: Yes Alcohol Alcohol Intake: current Alcohol intake frequency: 3 or more drinks per day Alcohol type: beer, wine and hard liquor Substance Use Substance use: Never Substance use type: does not use Vital Signs and Lab Results Vital Signs Most Recent Vital Signs in EMR: Most Recent Vital Signs Temp Pulse Resp BP Pulse Ox 36.3 C L 85 19 137/76 92 11/18/23 09:00 11/18/23 09:00 11/18/23 09:00 11/18/23 09:00 11/18/23 09:00 Lab Results 11/18/23 06:25 11/18/23 06:25 Blood Type / Crossmatch: 2 Patient ABO/Rh A Positive 11/17/23 Antibody Screen NEGATIVE 11/17/23 Complete Blood Count: 2 White Blood Count 7.13 10^3/uL (4.4-10.8) 11/18/23 06:25 Red Blood Count 3.00 10^6/uL (4.36-5.78) L 11/18/23 06:25 Hemoglobin 10.2 g/dL (13.5-17.5) L 11/18/23 06:25 Hematocrit 30.2 % (40.0-50.0) L 11/18/23 06:25 Platelet Count 246 10^3/uL (130-400) 11/18/23 06:25 Complete Metabolic Panel: 2 Sodium 142 mmol/L (136-145) 11/18/23 06:25 Potassium 4.0 mmol/L (3.5-5.1) 11/18/23 06:25 Chloride 107 mmol/L (98-107) 11/18/23 06:25 Carbon Dioxide 24.6 mmol/L (21.0-32.0) 11/18/23 06:25 BUN 12 mg/dL (7-18) 11/18/23 06:25 Creatinine 0.8 mg/dL (0.70-1.30) 11/18/23 06:25 Est GFR (CKD-EPI 2020) 94.62 (mL/min/1.73m2) 11/18/23 06:25 Calcium 8.5 mg/dL (8.5-10.1) 11/18/23 06:25 Albumin 4.0 g/dL (3.4-5.0) 11/17/23 19:30 Glucose 108 mg/dL (74-106) H 11/18/23 06:25 Hemoglobin A1c 5.0 % (<5.7) 10/23/23 10:17 C-Reactive Protein < 0.50 mg/dL (<or=0.5) 11/17/23 19:30 Liver Function Panel: 2 Alanine Aminotransferase (ALT/SGPT) 29 U/L (16-63) 11/17/23 19: 30 Aspartate Amino Transf (AST/SGOT) 29 U/L (15-37) 11/17/23 19:30 Coagulation Panel: 2 INR International Normalized Ratio 1.1 (0.9-1.1) 11/17/23 19:3 0 Prothrombin Time 10.6 sec (9.1-11.1) 11/17/23 19:30 Activated Partial Thromboplast Time 25.3 sec (23.6-32.8) 19:30 Cardiac Panel: 2 No Data to Display Arterial Blood Gas: 2 No Data to Display Venous Blood Gas: 2 No Data to Display Pancreas Panel: 2 No Data to Display Thyroid Panel: 2 Thyroid Stimulating Hormone (TSH) 1.40 uIU/mL (0.36-3.74) 10/23 10:17 Infectious Disease: 2 Hepatitis C Antibody Negative (Negative) 10/23/23 10:17 Blood Cultures: 2 No Data to Display Toxicology Panel: 2 No Data to Display Imaging and Studies Imaging and Studies Study information below may be from another EMR and interpreted by another provider. Please see original notes in EMR for more complete details. EKG Summary: 08/23 Sinus rhythm...normal P axis, V-rate 60- 99 Nonspecific intraventricular conduction delay...QRSd >115mS, not LBBB/RBBB Pulmonary Function Summary: 08/26: normal PFTs, positive methacholine challenge. Anesthesia Assessment and Plan Anesthesia History Personal History: No History of Anesthesia Complications Family History: No Family History of Anesthesia Complications Exercise Tolerance Exercise Tolerance: Metabolic Equivalents>4 Pertinent Negatives Pertinent Negatives: No Major Cardiovascular Symptoms or Complaints, No Major Pulmonary Symptoms or Complaints and No History of CVA/TIA Cardiac & Pulmonary Exam Cardiac Exam: Normal S1/S2 Heart Sounds Pulmonary Exam: Clear Bilateral Breath Sounds Implantable Cardiac Device Does patient have a Pacemaker or an ICD?: No Airway Exam Known Difficult Airway: No Mallampati Class: 2 Mouth Opening: Normal (> 3cm) Thyromental Distance: Greater than 3 cm Neck Range of Motion: Full ROM Neck Circumference: Normal Teeth Condition: Normal Dentition ASA Classification ASA Score: ASA 2 Emergency Case?: Yes NPO Status NPO Status: NPO Clears >2 hours, Solids >8 hours Anesthesia Plan Resuscitation Status: Full Code Anesthesia Technique: General Anesthesia Airway Planned: Natural Airway Monitors Used: Standard Monitors
--- NOTE | 2023-11-18 13:50 | BOWEL_PTH ---
PATIENT: Roosevelt Sims LOC: U#:[id number] AGE/SX: 73/M ROOM: 226 RE11/17/[address]: Kirsten Barrett : 1950 BED: A DIS: 11/19/2023 SPEC #: [id number] RECD: 11/20/23 12:45 STATUS: ROSENDO REQ #: [id number] LING: 11/18/23 13:[address]: Kirsten Barrett DEPT: Surgical Specimen RECD BY: Yamilka Wilson ENTERED: 11/20/23 12:47 SP TYPE: Bowel OTHR DR: Judy Stevens, DECK [employer]IC Tissues: 1 - BIOPSY BOWEL 2 - BIOPSY BOWEL Procedures: GROSS AND MICRO LEVEL 4 Comments: [id number]
--- NOTE | 2023-11-18 14:09 | W.COLOREPORT ---
Date of service: 11/18/23 Time of Service: 14:09 Colonoscopy Report Date of procedure: 11/18/23 Pre-op diagnosis general: rectal bleeding/contrast blush on CT /hx of pate diverticula Post-op diagnosis procedure note: same Procedure: flex sig Surgeon: Kirsten Barrett Anesthesia Type: General:No Airway Estimated blood loss (mL): 0 Pathology: other Complications: None Disposition: floor Procedure Description: After informed consent was obtained the patient was taken to the procedure room and placed in a left decubitous position. Monitors were applied and a time out was done. The patients name, date of , procedure, allergies to medications and metal in their body was reviewed. The patient was then sedated. Once sedated and comfortable a rectal exam was done. External exam shows small ext. hemorroids w/ no active thrombosis or inflammation. Internal exam revealed a normal sphincter tone and no palpable masses. The scope was then introduced and retrofelexed. No internal hemorrhoids were identified- no active bleeding/thrombosis/inflammation. This was an unprepped colonoscopy. The scope was then advanced to 30cm. He has multiple large diverticula. There is no signs of active bleeding. the ambrosio are coated with dark/old blood clots. Other than the severe diverticula, there are no signs of active bleeding. Biopsies taken in the high rectum in the low rectum. Time was taken to wash and irrigate the mucosa, but there is still obstruction to direct visualization from the old blood. Lesions less than .5 cm may have been missed. There is no large tumors masses or other large polyp to explain the bleeding or the abnormality noted on CT. The scope was removed and the patient was woken up and taken back to [facility] in stable condition. The patient tolerated the procedure well and there were no immediate complications. Follow up: The patient should follow up in 2027 for routine colorectal cancer screening unless they develop changes in bowel habits or other new gastrointestinal complaints.
--- NOTE | 2023-11-18 14:20 | W.ANESPOSTOP ---
Postoperative Evaluation Date, Time and Location Date Performed: 11/18/23 Time Performed: 14:16 Patient Location: Med/Surg Vital Signs Most Recent Imported Vital Signs: Most Recent Vital Signs Temp Pulse Resp BP Pulse Ox 37.1 C 85 18 120/71 94 11/18/23 14:16 11/18/23 09:00 11/18/23 14:16 11/18/23 14:16 11/18/23 14:16 Pain Score Most Recent Pain Score: Most Recent Pain Score Pain Level 0 11/18/23 09:00 Assessment Mental Status: Awake (Alert & Oriented to Patient Baseline) Airway and Respiratory Function: Patent airway with normal (patient baseline) respiratory exam Cardiovascular Function: Hemodynamically Stable Hydration Status: Adequately Hydrated Nausea & Vomiting: No Nausea or Vomiting Pain: Pt. Denies Any Pain Peripheral Nerve Block: Patient did not receive a nerve block
[2023-11-18] MEDS: Zolpidem 6.25 MG TABCR 12.5 MG PO (20:49)
[2023-11-19 06:30] LABS: HCT 29.4 % (40.0-50.0)
[2023-11-19 07:13] LABS: Ferritin 163 ng/mL (26-388)
[2023-11-19] MEDS: Budesonide/Formoterol 160/4.5 6 GM 60 PUFF INH IH (07:45)
[2023-11-19 08:37] VITALS: BP 120/69; PULSE 83; RESP 18; TEMP 36.1; O2SAT 95
[2023-11-19] MEDS: Normal Saline Flush 10 ML SYR IVP ×2 (08:39)
--- NOTE | 2023-11-19 12:31 | DSE_ITS ---
Date of service: 11/19/23 Time of Service: 12:31 DS: Diagnosis Discharge Diagnosis (1) Sensorineural hearing loss, bilateral: Status: Acute (2) Acute lower gastrointestinal bleeding: Status: Acute (3) Nocturia: Status: Acute (4) Asthma, moderate persistent: Status: Chronic (5) Insomnia: Status: Acute (6) Pancolonic diverticulosis: Status: Acute (7) Scoliosis: (8) Steatosis: Status: Acute (9) DJD (degenerative joint disease), lumbar: Status: Acute (10) BPH associated with nocturia: Status: Acute Discharge Plan Disposition Patient Disposition: Home Condition: Good Discharge Details Reason For Visit: rectal bleed Admit Date/Time: 11/17/23 23:07 Admit Provider: Kirsten Barrett Attending Provider: Kirsten Barrett [facility]: see addendum Home Meds and New Rx's Prescriptions: No Action (DME) [employer] MDI Spacer Spacer See Rx Instructions .ROUTE .MEDSUPPLY Qty: 1 0RF Rx Instructions: As directed CENTRUM TABLET 1 EACH tablet 1 ea PO DAILY budesonide-formoterol [Symbicort] 160-4.5 mcg/actuation HFA aerosol inhaler 2 inh INHALATION BID tadalafil 5 mg tablet 5 mg PO DAILY Qty: 90 4RF zolpidem 6.25 mg tablet,ext release multiphase 12.5 mg PO HS PRN (Reason: insomnia) Qty: 30 1RF Discharge Instructions Additional Instructions: -No driving for 24hrs -Follow-up with Dr. Barrett in 2 week. [phone]. [facility] to make an appointment. -soft diet: No beef/pork raw vegetables x1 -week. Cooked vegetables are fine See below -no straining to move bowels. if you do not move your bowels daily take a dose of OTC Miralax. You may not have been a bowel movement for the next 1 to 2 days. Expect to pass a lot of old dark blood in the next 1 to 3 days. -No strenuous activity or lifting over 20 pounds for the next 48 hours. -It is ok to shower. -You may find that your appetite is smaller. Eat 3-6 small meals throughout the day. It is important to drink lots of water after hospitalization, 6-10 glasses a day. -If you were given an incentive spirometry (breathing postdoctoral scholar?), continue to do this 10x/hour while awake. -We do want you up walking, at least 5-6 times per day. This is very important to prevent pneumonia and blood clots. You can climb stairs, take them slowly. -You may find that you are very tired after hospitalization- this is normal. -Take a multivitamin with iron daily. -For the next 2 weeks do not take any: Aspirin/NSAIDs/fish oil/vitamins D or E/garlic If you experience any chest pain or shortness of breath, weakness /dizziness/ feeling like you are going to pass out, heavy bright red bleeding, return to the ER. Gastrointestinal Soft Diet Overview Overview What is a gastrointestinal soft diet? This diet is soft in texture, low in fiber, and easy to digest. ?in the bowel that may cause and discomfort. This diet is often used after abdominal surgery or as a transitional diet after flares. Meats & Meat Substitutes ?? Foods Allowed: Chicken, turkey, fish, tender cuts of beef and pork, ground meats, eggs, creamy nut butters, tofu, skinless hot dogs, sausage patties without whole spices ?? Foods to Avoid : Tough, fibrous meats with gristle, meat with casings (hot dogs, sausage, kielbasa), lunch meats with whole spices, shellfish, beans, chunky peanut butter, nuts Fruits and Juices ?? Foods Allowed: Fruit juices without pulp, banana, avocado, applesauce, canned peaches and pears, cooked fruit without the skin/seeds.? Ground or over- cooked fruits.? Fruits ground finely in a ?smoothie?. ?? Foods to Avoid: Juices with pulp, fresh fruit (except banana and avocado), dried fruits, canned fruit cocktail and pineapple, coconut, frozen/thawed berries Vegetables ?? Foods Allowed: Well-cooked or canned vegetables, potatoes without skin, tomato sauces, vegetable juice ?? Foods to Avoid: Raw vegetables, all corn, all mushrooms, stewed tomatoes, potato skins, stir-clemente vegetables, sauerkraut, pickles, olives, all dried beans, peas, and legumes Cereals and Grains ?? Foods Allowed: Low- fiber dry or cooked cereals (less than 2 grams fiber per serving), white rice, pasta, macaroni, or noodles ?? Foods to Avoid: Cereals with nuts, berries, dried fruits, whole grain cereals, bran cereals, granola, brown or wild rice, whole grain pasta Breads and Crackers ?? Foods Allowed: White/refined breads and rolls, plain bagel, toast, plain crackers, rola crackers ?? Foods to Avoid: Whole grain breads- including white whole grain; bread/ rolls with raisins, nuts or seeds, multi-grain crackers Dairy ?? Foods Allowed: Milk, cheese, yogurt, milkshakes, pudding, ice cream, cottage cheese, sherbet ;?lactose free or low lactose versions if lactose intolerant ?? Foods to Avoid: Dairy product mixed with fresh fruit (except banana), berries, nuts or seeds Desserts ?? Foods Allowed: Plain cake, pudding, custard, ice cream, sherbet, gelatin, fruit whips ?? Foods to Avoid: Any dessert that contains nuts, dried fruits, coconut, or fruits with seeds Herbs and Spices ?? Foods Allowed: All ground spices or herbs, salt ?? Foods to Avoid: Whole spices such as peppercorns, whole cloves, anise seeds, celery seeds, lenny, hillary seeds, and fresh herbs Snacks/Other Foods ?? Foods Allowed: Sugar, honey, jelly, mayonnaise, mustard, soy sauce, oil, butter, margarine, marshmallows, cookies without dried fruits or nuts, snack chips and pretzels using refined flours ?? Foods to Avoid: Carbonated beverages, jams or jellies with seeds, popcorn After several weeks, slowly start to reintroduce the ?Foods to Avoid? back into your diet unless your doctor has told you otherwise. Try a small portion of one of these foods each day. If it does not bother you within 24 hours, it can be added to your diet. Continue to add new foods in this way. Some people may continue to have food sensitivities and may need to continue to avoid certain foods. If you cannot tolerate a food, avoid that food for a few weeks before you try it again. Guidelines when eating 1.??? Avoid any food that you cannot tolerate or that causes gas, bloating, or stomach pain. 2.??? Make time for your meals. Do not eat while you are in a hurry. Cut your food into small pieces. Chew each bite to a mashed potato consistency. Do not eat when you cannot concentrate on chewing well. 3.??? Drink at least 6-8 cups of fluid per day? Fluids include: water, coffee, tea, juice, milk, popsicles, soups, gelatin, pudding, ice cream, sherbet, and yogurt. In addition, choose caffeine-free beverages more often, especially if you are having?diarrhea. 4.??? A daily multivitamin may be recommended if diet is limited in amounts or variety of foods. Do not take any herbal supplements without first checking with your doctor. Activity:: see above Equipment/Supplies:: No Equipment Needed Diet:: see above Discharge Orders Discharge Orders: Discharge Order (Routine); Ordered 11/19/23 Ordered By: Kirsten Barrett DS: Summary Time Spent with Patient providing and/or coordinating discharge services: Less than 30 minutes Status at Discharge Functional status at discharge: independent ambulation Overall status at discharge: patient is progressing back to baseline Mental Status: mental status grossly normal Speech and Movement: speech and movement normal Mood: congruent mood Affect: normal affect Quality:SDOH Health Related Social Needs: No Data to Display Exam Psych Mental Status: mental status grossly normal Speech and Movement: speech and movement normal Mood: congruent mood Affect: normal affect DS: Data Vitals/I&O Vitals and I&O: Vital Signs Temperature 36.1 C L 11/19/23 08:37 Temperature Source Tympanic 11/19/23 08:37 Pulse 83 11/19/23 08:37 Pulse Rhythm Regular 11/19/23 08:25 Respiratory Rate 18 11/19/23 08:37 Respiratory Effort Normal, Non-Labored, Short of Breath 11/19/23 08:25 Respiratory Depth Normal 11/19/23 08:25 Respiratory Pattern Normal 11/19/23 08:25 Blood Pressure 120/69 11/19/23 08:37 Blood Pressure Mean 101 11/17/23 23:01 Blood Pressure Position Sitting 11/17/23 19:06 Pulse Oximetry 95 11/19/23 08:37 Oxygen Delivery Method Room Air 11/19/23 08:37 Oxygen Flow Rate 0 11/19/23 08:37 Pain Level 0 11/19/23 08:37 Intake & Output 11/18/23 11/19/23 11/19/23 23:59 11:59 23:59 Intake Total 1000 / 1010 570 / 1030 460 / 1030 Balance 1000 / 1010 570 / 1030 460 / 1030 Weight 77.2 kg Intake: IV 1000 / 1010 10 / 10 Oral 560 / 1020 460 / 1020 Other: Urine Color Yellow Pale Yellow Urine Appearance Clear Clear Urine Odor Normal Normal Voiding Methods Toilet Toilet Data Completed and Pending Labs on day of discharge: Labs from last 24 hours 11/19/23 06:05 Hgb 10.0 L Hct 29.4 L Ferritin 163 PFSH All Active Problems (Updated 11/17/23 @ 23:17 by Kirsten Barrett DO) BPH associated with nocturia (Acute) DJD (degenerative joint disease), lumbar (Acute) Steatosis (Acute) Pancolonic diverticulosis (Acute) Acute lower gastrointestinal bleeding (Acute) Right inguinal hernia (Acute) Lung nodules (Acute) Asthma, moderate persistent (Chronic) normal PFTs without BD response 06/26 Insomnia (Acute) Nocturia (Acute) Sensorineural hearing loss, bilateral (Acute 01/07/16) Erectile dysfunction (Acute 07/14/14) Medical History Left inguinal hernia Repaired Bradycardia Scoliosis Low back pain Seeing chiropractor with good results. Also increased exercise. Surgical History History of inguinal hernia repair (~09/2023) S/P inguinal hernia repair using synthetic patch (~12/08/21) Vasectomy Repair of umbilical hernia (~04/2011) Family History Mother , age 71 Breast cancer Cervical cancer Father , age 85 Essential hypertension Cancer of kidney Sister , age 56 Stroke Maternal Grandfather Prostate cancer Paternal Grandfather Diabetes Maternal Grandmother No problems noted. Paternal Grandmother Cancer Sister No problems noted. Son No problems noted. Daughter No problems noted. Social History Smoking/Tobacco Use Status: Never Second Hand Exposure: Yes Smoking risk assessment performed?: Yes Alcohol Intake: current Alcohol Intake frequency: 3 or more drinks per day Alcohol type: beer, wine and hard liquor Drug use: Never Substance use type: does not use Caregiver/Support person: No Household members: spouse Housing: house Communication Needs: Hard of Hearing Do you need help understanding health information?: Never Pets and animals: No Sexually active: Yes Do you think of yourself as: straight/heterosexual Current gender identity: male What is your relationship status?: How often do you talk on the phone with friends or family?: three or more times per week How often do you get together with friends or relatives?: twice per week How often do you attend restorationism or sikh services?: 1-3 times per year Do you belong to any clubs or organized social groups?: yes Panel score (0-1 are the most socially isolated patients): 3 What type of physical activity do you participate in: walking and weight lifting Duration: 30-45 minutes/day Frequency: 3-4 times per week Nicole/Yarsani: Holiness Special nicole needs: No Seatbelt use: always Helmet use: Yes Helmet use: always Drive intox or ride w/intox bus driver school: No Do you feel safe at home: Yes Do you feel safe in your relationship?: Yes Victim of physical abuse: No Victim of emotional abuse: No Victim of sexual abuse: No Would you like helpful sources: No Time Spent with Patient Time Spent with Patient: <45 minutes Time was spent: preparing to see the patient(eg.review tests), obtaining and/or reviewing separately otained hiistory, ordering medications,tests, procedures, referring, communicating with other health clinical care coordinator, indepentently interpreting results, counseling the patient and care coordination
--- NOTE | 2023-11-19 13:34 | CMDISCH_ITS ---
Date of service: 11/19/23 LACE Index Scoring Tool Questions: Length of Stay (in days): 2 Was the patient admitted via the E.D.?: Yes E.D. Visits: 0 Answers: Total Score: 5 Risk of Readmission: Low Risk Care Management Discharge Plan Reason for Hospitalization: Rectal bleed Discharge Plan: Roosevelt will discharge home via private vehicle. He will follow up with his PCP and plan of care instructions as prescribed. Patient/Family Education Needs: Review discharge instructions and limitations, discussion of self care needs including Ask Me Three [facility] Health Related Social Needs: No Data to Display
== END 2023-11-19 13:06 | disposition home or self-care (01) | DRG 378 ==
LOC: ER 23:28 → MS 23:41
PROVIDERS: Admitting Provider Surgery; Emergency Provider Emergency Medicine; PCP Nurse Practitioner Family; Visit Provider Surgery
PROC: 0DJD8ZZ Inspection of Lower Intestinal Tract, Via Natural or Artificial Opening Endoscopic (ICD-10-PCS; CPT 45330; principal; 2023-11-18 13:15)
DX: K57.31 Diverticulosis of large intestine without perforation or abscess with bleeding (principal); J45.41 Moderate persistent asthma with (acute) exacerbation; R35.1 Nocturia; G47.00 Insomnia, unspecified; R00.1 Bradycardia, unspecified; N41.1 Chronic prostatitis; R91.8 Other nonspecific abnormal finding of lung field; H90.3 Sensorineural hearing loss, bilateral; K76.0 Fatty (change of) liver, not elsewhere classified; K63.89 Other specified diseases of intestine
CPT/HCPCS: 45331; 36415; 80048; 80053; 86850; 86900; 86901; 88305; 94640; 96360; 96361; 99285; 74174; 82728; 85014; 85018; 85025; 85610; 85730; 86140; 94664; J2001; J2371; J2405; J2704; J3490

== ENCOUNTER 2023-12-01 01:39 | Outpatient (CLI) | payer OTHER, SELFPAY ==
[2023-12-01 13:30] LABS: Abs Immature Grans 0.04 10^3/uL (0.0-0.06); Absolute Basophil Count 0.06 10^3/uL (0.0-0.2); Absolute Eosinophil Count 0.09 10^3/uL (0.0-0.7); Absolute Lymphocyte Count 1.57 10^3/uL (1.2-3.4); Absolute Monocyte Count 0.76 10^3/uL (0.1-0.8); Basophils % 0.8; Eosinophils % 1.2; HCT 34.8 % (40.0-50.0); HGB 11.5 g/dL (13.5-17.5); Immature Grans % 0.5; Lymphocytes % 20.9; MCH 34.4 pg (27.0-33.0); MCV 104 fL (80-95); MPV 8.8 fL (8.0-11.0); Monocytes % 10.1; Neutrophils % 66.5; Platelet Count 409 10^3/uL (130-400); RBC 3.34 10^6/uL (4.36-5.78); RDW 15.2 % (11.8-14.1); RDW-SD 58.4 fL; WBC 7.52 10^3/uL (4.4-10.8)
[2023-12-01 14:27] LABS: Ferritin 78 ng/mL (26-388)
== END 2023-12-01 01:40 | disposition home or self-care (01) ==
PROVIDERS: PCP Nurse Practitioner Family; Visit Provider Surgery
DX: K57.30 Diverticulosis of large intestine without perforation or abscess without bleeding; D50.0 Iron deficiency anemia secondary to blood loss (chronic)
CPT/HCPCS: 36415; 82728; 85025

== ENCOUNTER 2024-01-15 04:51 | Outpatient (CLI) | payer OTHER, SELFPAY ==
[2024-01-15 13:08] LABS: Abs Immature Grans 0.01 10^3/uL (0.0-0.06); Absolute Basophil Count 0.05 10^3/uL (0.0-0.2); Absolute Eosinophil Count 0.12 10^3/uL (0.0-0.7); Absolute Monocyte Count 0.59 10^3/uL (0.1-0.8); Absolute Neutrophil Count 3.47 10^3/uL (1.2-6.7); Basophils % 0.9 %; Eosinophils % 2.1 %; HGB 13.8 g/dL (13.5-17.5); Immature Grans % 0.2 %; Lymphocytes % 24.8 %; MCH 33.8 pg (27.0-33.0); MCHC 33.7 % (32.0-36.0); MCV 101 fL (80-95); MPV 9.6 fL (8.0-11.0); Monocytes % 10.5 %; Neutrophils % 61.5 %; Platelet Count 325 10^3/uL (130-400); RBC 4.08 10^6/uL (4.36-5.78); RDW 12.3 % (11.8-14.1); RDW-SD 46.1 fL; WBC 5.64 10^3/uL (4.4-10.8)
[2024-01-15 13:36] LABS: Ferritin 74 ng/mL (26-388)
== END 2024-01-15 04:52 | disposition home or self-care (01) ==
PROVIDERS: PCP Nurse Practitioner Family; Visit Provider Surgery
DX: D50.0 Iron deficiency anemia secondary to blood loss (chronic) (principal)
CPT/HCPCS: 36415; 82728; 85025

== ENCOUNTER 2024-09-29 17:34 | Emergency (ER) | payer OTHER, SELFPAY ==
[2024-09-29] VITALS (30 sets, daily range): BP systolic 143–166; BP diastolic 70–95; PULSE 74–90; RESP 11–23; TEMP 36.6; O2SAT 93–97
--- OUTSIDE RECORDS SUMMARY | 2024-09-29 17:44 | XMS_ITS | Referral Summary ---
Author Organization [facility] Address [address] [place] [address] Care Team Providers Care Golf Starter And Ranger Name Role Phone Unknown, Provider Primary Care Provider Unava ilable Social History Tobacco Use Types Packs/Day Years Used Date Smoking Tobacco: Never Assessed Sex and Gender Information Value Date Recorded Sex Assigned at Not on file Legal Sex Male 18:41 EST Gender Identity Not on file Sexual Orientation Not on file Plan of Treatment Not on file Procedures Procedure Name Priority Date/Time Associated Diagnosis Comments HEPATITIS C AB W REFLEX TO HCV RNA BY PCR Routine 10/23/2023 10:17 EST from Last 3 Months or Most Recently Relevant to Health Maintenance Results * HEPATITIS C AB W REFLEX TO HCV RNA BY PCR (10/23/2023 10:17 EST) Hep C Antibody Negative Negative 10/23/2023 18:46 EST [facility] Blood VENOUS BLOOD / Unknown 10/23/2023 10:17 EST 10/23/2023 16:37 EST us Provider Outr Resulting Lab CHEMISTRY & BLOOD GA S ORDERABLES Final Result [facility] [address] [place] [address] from Last 3 Months or Most Recently Relevant to Health Maintenance Insurance [employer] Care Teams Golf Starter And Ranger Relationship Specialty Start Date End Date Unknown, Provider, PCP - General 07/10/15
--- OUTSIDE RECORDS SUMMARY | 2024-09-29 17:44 | XMS_ITS | Clinical Summary ---
Author Organization [facility] Address [address] [place] [id number] Care Team Providers Care Adjunct Business Instructor Name Role Phone Unknown, Provider Primary Care Provider Unava ilable Social History Tobacco Use Types Packs/Day Years Used Date Smoking Tobacco: Never Assessed Sex and Gender Information Value Date Recorded Sex Assigned at Not on file Legal Sex Male 18:41 EST Gender Identity Not on file Sexual Orientation Not on file Plan of Treatment Health Maintenance Due Date Last Done Comments Fall Risk Screening 2017 COVID-19 Vaccine ( season) 2024 RSV Immunization ( o r 60+ Years) (1 - 1-dose 75+ series) 2027 Hepatitis C Screen Completed 10/23/2023 Procedures Procedure Name Priority Date/Time Associated Diagnosis Comments HEPATITIS C AB W REFLEX TO HCV RNA BY PCR Routine 10/23/2023 10:17 EST from Last 3 Months or Most Recently Relevant to Health Maintenance Results * HEPATITIS C AB W REFLEX TO HCV RNA BY PCR (10/23/2023 10:17 EST) Hep C Antibody Negative Negative 10/23/2023 18:46 EST [facility] Blood VENOUS BLOOD / Unknown 10/23/2023 10:17 EST 10/23/2023 16:37 EST us Provider Outr Resulting Lab CHEMISTRY & BLOOD GA S ORDERABLES Final Result [facility] [address] [place] [address] from Last 3 Months or Most Recently Relevant to Health Maintenance Insurance [employer] Care Teams Adjunct Business Instructor Relationship Specialty Start Date End Date Unknown, Provider, PCP - General 07/10/15
--- OUTSIDE RECORDS SUMMARY | 2024-09-29 17:44 | XMS_ITS | Encounter Summary ---
Author Organization [facility] Address [address] [place] [address] Care Team Providers Care Siebel Crm Developer Name Role Phone Unavailable Primary Care Provider Unavailabl e Encounter Details Date Type Department Care Team (Late st Contact Info) Description 05/21/2007 Results Only [facility] [address] [place] [address] Andrei Orozco, DO [address] [place] [address] Social History Tobacco Use Types Packs/Day Years Used Date Smoking Tobacco: Never Assessed Sex and Gender Information Value Date Recorded Sex Assigned at Not on file Legal Sex Male 18:41 EST Gender Identity Not on file Sexual Orientation Not on file documented as of this encounter Plan of Treatment Not on file documented as of this encounter Procedures Procedure Name Priority Date/Time Associated Diagnosis Comments SURGICAL PATHOLOGY Routine 05/21/2007 0:00 EDT documented in this encounter Results * SURGICAL PATHOLOGY (05/21/2007 0:00 EDT) Pathology Report: SURGICAL PATHOLOGY REPORT Reports generated via electronic interface contain original data; however they are lacking the format of the original report. Caution should be taken when reading/interpreti ng unformatted reports. Name: ? PATRIZIA SEARS ? Accession #: ? [id number] ? : ? 1950 (Age: 57) ??M ? Collect Date: ? 05/21/2007 ? Location: ? [facility] ? Receive Date: ? 05/21/2007 ? Provider: ANDREI OROZCO DO Copy to: EDWIN KIRKLAND MD ? Final Pathologic Diagnosis: ? Colon, sigmoid, polyps, biopsies: - Fragments of hyperplastic polyp(s). Document reviewed and electronically signed by: Alida Berry MD Report ??Date: 05/23/2007 18:49 By the signature above, the attending physician certifies that he/she has personally conducted a gross and/or microscopic examination of the described specimens and rendered or confirmed the above diagnosis. Specimen(s) Received: ? 4 sigmoid colon polyps 3 mm Clinical History: ? CRC screen Gross Description: ? Received in Hollande's fixative labelled Corrow and sigmoid colon polyps 3 mm are three downey-pink soft tissues ranging from 0.2 x 0.2 x 0.2 cm to 0.4 x 0.2 x 0.2 cm. The specimen is entirely submitted in one cassette. /sharonda End of Report [facility] 05/21/2007 05/21/2007 1:2 4 EDT us Andrei Orozco DO PATHOLOGY ORDERABLES Final Resul t [facility] [address] [place] [address] documented in this encounter Visit Diagnoses Not on filedocumented in this encounter
--- OUTSIDE RECORDS SUMMARY | 2024-09-29 17:44 | XMS_ITS | Encounter Summary ---
Author Organization [facility] Address [address] [place] [address] Care Team Providers Care Management Specialist Name Role Phone Unknown, Provider Primary Care Provider Unava ilable Encounter Details Date Type Department Care Team (Late st Contact Info) Description 10/23/2023 Lab Requisition [facility] Pathology & Laboratory Medicine - [facility] [address], [place] [id number] Outr Resulting Lab, Provider Social History Tobacco Use Types Packs/Day Years [...] RNA BY PCR Routine 10/23/2023 10:17 EST PSA TOTAL, DIAGNOSTIC Routine 10/23/2023 10:17 EST documented in this encounter Results * PSA TOTAL, DIAGNOSTIC (10/23/2023 10:17 EST) PSA 1.9 <=6.5 ng/mL 10/23/2023 18:13 EST [facility] Blood VENOUS BLOOD / Unknown 10/23/2023 10:17 EST 10/23/2023 16:37 EST Narrative [facility] - 10/23/2023 18:13 EST NOTE: Serum PSA concentration should not be interpreted as absolute evidence for the presence or absence of malignant disease. Assayed on Siemens ADVIA Centaur XPT using chemiluminescent technology.??Values obtained by using different assay methods cannot be used interchangeably. us Provider Outr Resulting Lab CHEMISTRY & BLOOD GA S ORDERABLES Final Result Performing Organization Address City/[facility]/ZIP Co de Phone Number [facility] [address] [place] [address] * HEPATITIS C AB W REFLEX TO HCV RNA BY PCR (10/23/2023 10:17 EST) Hep C Antibody Negative Negative 10/23/2023 18:46 EST [facility] Blood VENOUS BLOOD / Unknown 10/23/2023 10:17 EST 10/23/2023 16:37 EST us Provider Outr Resulting Lab CHEMISTRY & BLOOD GA S ORDERABLES Final Result Performing Organization Address City/[facility]/[place] Co de Phone Number [facility] [address] [place] [address] documented in this encounter Visit Diagnoses Not on filedocumented in this encounter Care Teams Management Specialist Relationship Specialty Start Date End Date Unknown, Provider, PCP - General 07/10/15 documented as of this encounter
--- OUTSIDE RECORDS SUMMARY | 2024-09-29 17:44 | XMS_ITS | Encounter Summary ---
Author Organization [facility] Address [address] [place] [address] Care Team Providers Care Managing Manager Name Role Phone Unknown, Provider Primary Care Provider Unava ilable Encounter Details Date Type Department Care Team (Late st Contact Info) Description 08/23/2019 Lab Requisition [facility] Pathology & Laboratory Medicine - [facility] [address] [place] [address] Unknown, Provider, Social History Tobacco Use Types Packs/Day Years [...] Procedure Name Priority Date/Time Associated Diagnosis Comments PSA TOTAL, DIAGNOSTIC Routine 08/23/2019 10:33 EST documented in this encounter Results * PSA TOTAL, DIAGNOSTIC (08/23/2019 10:33 EST) PSA 1.2 0.0 - 4.5 ng/mL 08/26/2019 10:48 EST [facility] Blood VENOUS BLOOD / Unknown 08/23/2019 10:33 EST 08/23/2019 16:50 EST Narrative [facility] - 08/26/2019 10:48 EST NOTE: Serum PSA concentration should not be interpreted as absolute evidence for the presence or absence of malignant disease. Assayed on Siemens ADVIA [email or web address] XPT using chemiluminescent technology.??Values obtained by using different assay methods cannot be used interchangeably. us Provider Unknown CHEMISTRY & BLOOD GAS ORDERA BLES Final Result [facility] [address] [place] [address] documented in this encounter Visit Diagnoses Not on filedocumented in this encounter Care Teams Managing Manager Relationship Specialty Start Date End Date Unknown, Provider, PCP - General 07/10/15 documented as of this encounter
--- OUTSIDE RECORDS SUMMARY | 2024-09-29 17:44 | XMS_ITS | Encounter Summary ---
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 Phone Unknown, Provider Primary Care Provider Unava ilable Encounter Details Date Type Department Care Team (Late st Contact Info) Description 11/20/2023 Lab Requisition [facility] Pathology & Laboratory Medicine - [facility] [address] [place] [address] Kirsten Barrett, DO [address] [place] [address] Diverticulosis of large intestine without perforation or abscess without bleeding; Gastrointestinal hemorrhage, unspecified; Diverticulosis of large intestine without perforation or abscess with bleeding Social History Tobacco Use Types Packs/Day Years [...] Priority Date/Time Associated Diagnosis Comments SURGICAL PATHOLOGY Today 11/19/2023 13 :50 EDT Diverticulosis of large intestine without perforation or abscess without bleeding Gastrointestinal hemorrhage, unspecified Diverticulosis of large intestine without perforation or abscess with bleeding documented in this encounter Results * SURGICAL PATHOLOGY (11/19/2023 13:50 EDT) Note to Patient The following pathology results have been interpreted by your pathologist and may be available to you before your health provider has had the opportunity to review them. Please allow time for your provider to receive these results and explore management options, if applicable. 11/22/2023 12:39 T [facility] Final Diagnosis A. RECTUM, HIGH, BIOPSY: - Colonic mucosa without significant diagnostic abnormality. B. RECTUM, LOW, BIOPSY: - Colonic mucosa without significant diagnostic abnormality. 11/22/2023 12:39 [facility] Attestation By the signature below, the attending physician certifies that they have 1) personally conducted a gross and/or microscopic examination of the described specimen(s), and/or personally interpreted the results of laboratory testing of the described specimen(s), and 2) personally rendered or confirmed the above diagnosis. 11/22/2023 12:39 [facility] at 1239 Clinical History GI bleeding, diverticulosis 11/22/2023 12:39 [facility] Gross Description A. Received in formalin labelled with proper patient identification (initials C, L) and high rectal bx is a single fragment of downey tissue (0.4 x 0.3 x 0.2 cm). The specimen is entirely submitted in A1. B. Received in formalin labelled with proper patient identification (initials C, L) and low rectal bx is a single fragment of downey tissue (0.3 x 0.3 x 0.2 cm). The specimen is entirely submitted in B1. GONZALEZ BENNETT(ASCP) 11/20/2023 17:48 11/22/2023 12:39 EDT [facility] Performing Lab [facility] 11/22/2023 12:39 T [facility] Scanned Images 11/22/2023 12:39 T [facility] Tissue SPECIMEN FROM RECTUM / Unknown 11/19/2023 13:50 EDT 11/20/2023 17:35 EDT Tissue specimen (specimen) SPECIMEN FROM RECTUM / Unknown 11/19/2023 13:50 EDT 11/20/2023 17:35 EDT us Kirsten Barrett DO PATHOLOGY ORDERABLES Final Re sult [facility] [address] [place] [address] documented in this encounter Visit Diagnoses Diagnosis Diverticulosis of large intestine without perforation or abscess without bleeding Diverticulosis of colon (without mention of hemorrhage) Gastrointestinal hemorrhage, unspecified Diverticulosis of large intestine without perforation or abscess with bleeding Diverticulosis of colon with hemorrhage documented in this encounter Care Teams Auto Bench Mechanic Relationship Specialty Start Date End Date Unknown, Provider, PCP - General 07/10/15 documented as of this encounter
--- NOTE | 2024-09-29 17:45 | DI.CT_ITS ---
Exam(s) CT ABDOMEN PELVIS CTA EXAM: CT ABDOMEN PELVIS CTA CLINICAL HISTORY: lower gi bleeding. TECHNIQUE: Imaging Protocol: Axial computed tomography images with coronal and sagittal reformatted images were created and reviewed CONTRAST MATERIAL: Intravenous: Omnipaque 350 Contrast volume:100 ml Oral: None COMPARISON: CT CT ABDOMEN PELVIS CTA from 11/17/2023 FINDINGS: ABDOMEN: There is no intraluminal extravasation of injected IV contrast to define a culprit intraluminal bleed ing site in the GI tract. There is no evidence of abdominal aortic aneurysm nor dissection.There is no aneurysmal dilatation of the common iliac arteries.The celiac and superior mesenteric arteries are patent.Inferior mesenteric artery is patent. No significant atherosclerotic narrowing of the aorta and iliac arteries. Common femoral arteries are also patent. There is no significant stenosis at the origin nor more distally in the renal arteries. There is no ascites. LIVER: Liver is hypodense implying steatosis. There no discrete focal hepatic lesions identified. GALLBLADDER/BILIARY: No obvious gallbladder pathology. CBD is not dilated. PANCREAS: No evidence of pancreatic mass nor dilatation of the pancreatic duct. SPLEEN: Spleen is not enlarged. There are no intrasplenic lesions. Splenic and portal veins are leyva nt. ADRENALS: There are no significant adrenal masses. KIDNEYS: Right kidney unremarkable. There is an exophytic nodule off the inferior pole of the left k idney which measures 1.1 x 1.2 cm, similar size to previous although presently appears slightly dense r with Hounsfield unit measurements averaging 80 HU. No calculi nor hydronephrosis nor hydroureter.. ABDOMINAL AORTA: See above LYMPH NODES: There is no retroperitoneal nor para-aortic adenopathy. No obvious mesenteric masses. ABDOMINAL WALL: There is an anterior abdominal wall midline fat only containing umbilical hernia. Ar e densities at the level of both internal inguinal rings consistent with prior hernia repairs, this a ppearing unchanged from 11/17/2023. GI: There is no evidence of bowel obstruction, free air, nor abscess. PELVIS: LYMPH NODES: There is no intrapelvic nor inguinal adenopathy. GI: No evidence of appendicitis.There is diverticulosis throughout the transverse colon as well as in the descending-left colon and there is extensive sigmoid diverticulosis. There is no obvious acute diverticulitis. URINARY BLADDER: The urinary bladder wall is again noted to be uniformly thickened. REPRODUCTIVE: Prostate is enlarged. Also lobulated at level of bladder base with a focus of enhancem ent at this level. Recommend PSA testing. OSSEOUS: There is 1 cm anterolisthesis of L5 upon S1 again noted, this related to bilateral pars defe cts at L5 level and there is also advanced disc space narrowing at this level as well as bilateral fo raminal stenosis. No significant osseous lesions. IMPRESSION: 1. There is no demonstrated focus of intraluminal contrast extravasation to identify the culprit blee ding site in the GI tract. 2. There is diverticulosis of most of the colon, most extensive in the sigmoid. There is no evidence of obvious acute diverticulitis. There is no evidence of appendicitis. 3. Hepatic steatosis noted. 4. There is a nodule off the inferior pole of the left kidney measuring 1.2 x 1.1 cm. This has not i ncreased in size from prior CT scan of November 2023 but does appear more dense. Recommend follow-up ul trasound as the next step to help determine if this is a solid exophytic nodule versus a hemorrhagic cyst. 5. There is uniform thickening of the urinary bladder wall again noted. 6.There is also an enlarged prostate gland which appears lobulated superiorly where there also appear s to be some enhancement. Recommend PSA testing. 7. Previous bilateral inguinal hernia repair. Findings discussed with ER physician 09/29/2024 at 6:50 p.m. RADIATION DOSE DELIVERED: 1,298.28mGy.cm Total DLP DATA REPOSITORY: All CT scans at this facility are submitted to the National Radiology Data Registry (NRDR) Dose Index Registry (DIR) with the [employer] (ACR). RADIATION OPTIMIZATION: All CT scans at this facility use at least one of these dose optimization te chniques: automated exposure control; mA and/or kV adjustment per patient size (includes targeted exa ms where dose is matched to clinical indication); or iterative reconstruction.
[2024-09-29 18:05] LABS: Abs Immature Grans 0.02 10^3/uL (0.0-0.06); Absolute Basophil Count 0.06 10^3/uL (0.0-0.2); Basophils % 0.8 %; Eosinophils % 1.3 %; HCT 38.7 % (40.0-50.0); HGB 13.1 g/dL (13.5-17.5); Immature Grans % 0.3 %; Lymphocytes % 23.8 %; MCH 34.1 pg (27.0-33.0); MCHC 33.9 % (32.0-36.0); MCV 101 fL (80-95); MPV 9.4 fL (8.0-11.0); Monocytes % 8.8 %; Platelet Count 299 10^3/uL (130-400); RBC 3.84 10^6/uL (4.36-5.78); RDW 13.1 % (11.8-14.1); RDW-SD 48.7 fL; WBC 7.98 10^3/uL (4.4-10.8)
[2024-09-29] MEDS: Pantoprazole 40 MG VIAL 80 MG IVP (18:05)
--- NOTE | 2024-09-29 18:06 | ED.GENADUL_ITS ---
Discharge Plan Disposition Patient Disposition: Home Condition: Stable Discharge Details Clinical Impression: BRBPR (bright red blood per rectum) Primary Care Provider: Judy Stevens ED Provider: Cee Small Home Meds and New Rx's Prescriptions: No Action (DME) BreatheRite MDI Spacer Spacer See Rx Instructions .ROUTE .MEDSUPPLY Qty: 1 0RF Rx Instructions: As directed CENTRUM TABLET 1 EACH tablet 1 ea PO DAILY tadalafil 5 mg tablet 5 mg PO DAILY Qty: 90 4RF budesonide-formoterol [Symbicort] 160-4.5 mcg/actuation HFA aerosol inhaler 2 inh INHALATION BID Qty: 10.2 12RF zolpidem 12.5 mg tablet,ext release multiphase 12.5 mg PO HS PRN (Reason: insomnia) Qty: 30 1RF Discharge Instructions Instructions: Bloody Stools, Adult ED Additional Instructions: Your blood work is stable. Your hemoglobin has not dropped significantly. Your vital signs have also been stable and you have not had any additional bowel movements in the emergency department. At this time you are stable for discharge home. But should return to the emergency department if you develop return of bloody bowel movements abdominal pain, fever or other concerns. A referral has been placed for you to follow-up in general surgery clinic for reevaluation of any ongoing symptoms and to get a repeat colonoscopy. HPI General Date/Time Provider Initiated Documentation: 09/29/24 17:43 . Limitations to Documentation: no limitations . Information obtained by: patient, family and old records reviewed . HPI Narrative: 74-year-old gentleman with past medical history of lower GI bleeding, diverticulosis presents for evaluation of lower GI bleeding. He reports bright red blood, dark blood and clotting per rectum. This is occurred 4 times today. It is not associated with any fever or abdominal pain. states that the appearance of the stool is the same as it was previously when he had his lower GI bleeding. This occurred last year. He was admitted to the hospital and had a colonoscopy. He did not require a blood transfusion at that time. He is not on any anticoagulant and has been avoiding NSAIDs. Denies any alcohol use. Related Data Home Medications ?Medication ?Instructions ?Recorded ?Confirmed Centrum Tablet 1 ea PO DAILY 07/11/13 09/29/24 inhalational spacing device #1 ea 05/01/23 09/29/24 (BreatheRite MDI Spacer) tadalafil 5 mg tablet 5 mg PO DAILY #90 tabs 09/21/23 09/29/24 budesonide-formoterol HFA 160 2 inh inhalation BID #10.2 grams 01/01/24 09/29/24 mcg-4.5 mcg/actuation aerosol inhaler (Symbicort) zolpidem 12.5 mg tablet,extended 12.5 mg PO HS PRN insomnia #30 09/10/24 09/29/24 release,multiphase tab-caps Previous Rx's ?Medication ?Instructions ?Recorded inhalational spacing device #1 ea 05/01/23 (BreatheRite MDI Spacer) tadalafil 5 mg tablet 5 mg PO DAILY #90 tabs 09/21/23 budesonide-formoterol HFA 160 2 inh inhalation BID #10.2 grams 01/01/24 mcg-4.5 mcg/actuation aerosol inhaler (Symbicort) zolpidem 12.5 mg tablet,extended 12.5 mg PO HS PRN insomnia #30 09/10/24 release,multiphase tab-caps Allergies Allergy/AdvReac Type Severity Reaction Status Date / Time sulfamethoxazole AdvReac Mild GI Upset Verified 09/29/24 17:40 General Stated Complaint: GI Bleed [place]AYTON: 3 Exam Narrative Exam Narrative: Review of Systems: All systems reviewed & are unremarkable except as noted in HPI and below Well-developed, no acute distress NCAT No conjunctival pallor RRR no murmur Unlabored respiratory effort clear bilaterally Nondistended abdomen soft nontender Rectal exam deferred on initial evaluation Course Vital Signs Vital signs: Vital Signs Temperature 36.6 C 09/29/24 17:38 Pulse 90 09/29/24 17:38 Respiratory Rate 16 09/29/24 17:38 Blood Pressure 164/95 H 09/29/24 17:38 Pulse Oximetry 97 09/29/24 17:38 Temperature 36.6 C 09/29/24 17:38 Temperature Source Oral 09/29/24 17:38 Pulse 78 09/29/24 18:01 Pulse 77 09/29/24 18:01 Respiratory Rate 11 L 09/29/24 18:01 Blood Pressure 158/85 H 09/29/24 18:01 Blood Pressure Mean 111 09/29/24 18:01 Blood Pressure Position Sitting 09/29/24 17:38 Pulse Oximetry 96 09/29/24 18:01 Oxygen Delivery Method Room Air 09/29/24 17:38 Oxygen Flow Rate 0 09/29/24 17:38 Pain Level 0 09/29/24 18:05 Medical Decision Making Emergent evaluation of bright red blood per rectum. Initial differential includes lower GI bleeding, hemorrhoidal bleeding, diverticulitis. The patient medical record was reviewed and it is noted that he had an acute arterial extravasation at the anorectal junction last year. His hemoglobin dropped slightly he was admitted for hospital observation and had a flex sig done. But otherwise required no intervention and the bleeding stopped spontaneously. He is not on any anticoagulant and he has stable vital signs and a nontender abdomen. Of a low suspicion for an infectious etiology. Plan for blood work and CT imaging. CT imaging discussed with the radiologist, there is diverticulosis noted without any signs of diverticulitis or any active contrast extravasation. The patient has been in the emergency department and has not had any additional bowel movements. His heart rate and blood pressure have remained stable. His hemoglobin initially is 13/38. His BUN is not elevated. Remainder of his blood work is unremarkable. At this time the patient is very clinically stable. He feels that he may have a bowel movement soon. Given his age and prior history, I will continue to observe in the emergency department for additional bowel movements and we will repeat a hemoglobin in a few hours Patient observed in the emergency department for several hours, he has not had any additional bowel movements. His hemoglobin was repeated and dropped slightly but not significantly. He has remained hemodynamically stable. At this time I do not feel there is an indication for admission though strict return precautions were discussed with the patient and his . At this time they do feel comfortable going home. He has an urgent referral placed for follow-up in general surgery clinic. Understands to return if bleeding should return or persist. Quality:SDOH Health Related Social Needs: No Data to Display PFSH All Active Problems (Updated 09/29/24 @ 21:01 by Cee Small MD) BRBPR (bright red blood per rectum) (Acute) Anemia due to GI blood loss (Acute) BPH associated with nocturia (Acute) DJD (degenerative joint disease), lumbar (Acute) Steatosis (Acute) Pancolonic diverticulosis (Acute) Acute lower gastrointestinal bleeding (Acute) Right inguinal hernia (Acute) Lung nodules (Acute) Asthma, moderate persistent (Chronic) normal PFTs without BD response 06/26 Insomnia (Acute) Nocturia (Acute) Sensorineural hearing loss, bilateral (Acute 01/07/16) Erectile dysfunction (Acute 07/14/14) Medical History Left inguinal hernia Repaired Bradycardia Scoliosis Low back pain Seeing chiropractor with good results. Also increased exercise. Surgical History History of inguinal hernia repair (~09/2023) S/P inguinal hernia repair using synthetic patch (~12/08/21) Vasectomy Repair of umbilical hernia (~04/2011) Family History Mother , age 71 Breast cancer Cervical cancer Father , age 85 Essential hypertension Cancer of kidney Sister , age 56 Stroke Maternal Grandfather Prostate cancer Paternal Grandfather Diabetes Maternal Grandmother No problems noted. Paternal Grandmother Cancer Sister No problems noted. Son No problems noted. Daughter No problems noted. Social History Smoking/Tobacco Use Status: Never Second Hand Exposure: Yes Smoking risk assessment performed?: Yes Alcohol Intake: current Alcohol Intake frequency: 3 or more drinks per day Alcohol type: beer, wine and hard liquor Drug use: Never Substance use type: does not use Caregiver/Support person: No Household members: spouse Housing: house Communication Needs: Hard of Hearing Do you need help understanding health information?: Never Pets and animals: No Sexually active: Yes Do you think of yourself as: straight/heterosexual Current gender identity: male What is your relationship status?: How often do you talk on the phone with friends or family?: three or more times per week How often do you get together with friends or relatives?: twice per week How often do you attend taoism or buddhism services?: 1-3 times per year Do you belong to any clubs or organized social groups?: yes Panel score (0-1 are the most socially isolated patients): 3 What type of physical activity do you participate in: walking and weight lifting Duration: 30-45 minutes/day Frequency: 3-4 times per week Nicole/Sikh: Jewish Special nicole needs: No Seatbelt use: always Helmet use: Yes Helmet use: always Drive intox or ride w/intox driver license examiner: No Do you feel safe at home: Yes Do you feel safe in your relationship?: Yes Victim of physical abuse: No Victim of emotional abuse: No Victim of sexual abuse: No Would you like helpful sources: No
[2024-09-29] MEDS: Normal Saline - Diluent 50 ML VIAL IJ (18:11)
[2024-09-29] MEDS: Omnipaque 350 MG/ML 100 ML BTL IJ (18:11)
[2024-09-29 18:15] LABS: Prothrombin Time 10.2 sec (9.1-11.1)
[2024-09-29 18:21] LABS: ALT 32 U/L (16-63); AST 30 U/L (15-37); Albumin 3.9 g/dL (3.4-5.0); Alkaline Phosphatase 61 U/L (46-116); Anion Gap 10.1 mmol/L (3-11); BUN 11 mg/dL (7-18); Bilirubin, Total 0.77 mg/dL (0.2-1.0); CO2 27.9 mmol/L (21.0-32.0); CREATININE 0.9 mg/dL (0.70-1.30); Chloride 103 mmol/L (98-107); Estimated GFR 90.74 (mL/min/1.73m2); Glucose 82 mg/dL (74-106); Lipase 35 U/L (<78); Potassium 3.9 mmol/L (3.5-5.1); Sodium 141 mmol/L (136-145); Total Protein 7.4 g/dL (6.4-8.2)
[2024-09-29 18:28] LABS: Calcium 9.4 mg/dL (8.5-10.1)
[2024-09-29 20:49] LABS: HCT 36.7 % (40.0-50.0); HGB 12.4 g/dL (13.5-17.5); MCHC 33.8 % (32.0-36.0); MCV 101 fL (80-95); MPV 9.3 fL (8.0-11.0); Platelet Count 278 10^3/uL (130-400); RBC 3.65 10^6/uL (4.36-5.78); RDW-SD 48.6 fL; WBC 6.34 10^3/uL (4.4-10.8)
== END 2024-09-29 21:11 | disposition home or self-care (01) ==
PROVIDERS: Emergency Provider Emergency Medicine; PCP Nurse Practitioner Family
DX: K62.5 Hemorrhage of anus and rectum (principal)
CPT/HCPCS: 36415; 80053; 83690; 85027; 86850; 86900; 86901; 96374; 99285; 74174; 85025; 85610; 99284; J2470; J3490